=== PATIENT | female | born 1955 | race Caucasian/White ===

== ENCOUNTER 2020-06-14 06:26 | Outpatient (REF) | payer MEDICARE, SELFPAY ==
[2020-06-14 07:18] LABS: MANUAL DIFF FLAG NO
[2020-06-14 07:22] LABS: Basophils Percent Auto 0.4 % (0-2); Eosinophils Absolute Auto 0.1 X10*3/uL (0.0-0.4); Eosinophils Percent Auto 1.9 % (0-4); Hematocrit 41.8 % (37-47); Hemoglobin 13.8 g/dl (12.0-16.0); Imm Gran Abs Auto 0.02 X10*3/uL (0.00-0.03); Imm Gran Pct Auto 0.4 % (0.0-0.4); Lymphocytes Absolute Auto 1.2 X10*3/uL (1.2-4.9); Lymphocytes Percent Auto 26.6 % (20-40); Mean Corpuscular Hemoglobin 31.1 pg (27.0-33.0); Mean Corpuscular Volume 94.1 fL (80-98); Mean Platelet Volume 10.1 fL (9.4-12.3); Monocytes Absolute Auto 0.4 X10*3/uL (0.1-1.2); Monocytes Percent Auto 8.8 % (2-11); Neutrophils Absolute Auto 2.9 X10*3/uL (2.0-8.3); Neutrophils Percent Auto 61.9 % (45-73); Platelet Count 190 X10*3/uL (160-400); Red Blood Count 4.44 X10*6/uL (4.20-5.50); Red Cell Distribution Width 11.9 % (11.0-16.0); White Blood Count 4.7 X10*3/uL (4.8-10.8)
[2020-06-14 07:31] LABS: Glucose Urine UA NEG (NEG); Leukocyte Esterase Urine 1+ (NEG); Nitrite Urine NEG (NEG); Urine Blood TRACE (NEG); Urine Ketones NEG (NEG); Urine Protein NEG (NEG-TRACE)
[2020-06-14 07:32] LABS: Appearance Urine CLEAR; Color Urine YELLOW
[2020-06-14 07:39] LABS: Alanine Aminotransferase 15 U/L (0-31); Albumin Level 4.2 g/dL (3.5-5.0); Alkaline Phosphatase 67 U/L (39-117); Anion Gap 14 (12-20); Aspartate Amino Transferase 18 U/L (5-31); Bilirubin Total 0.3 mg/dL (0.0-1.0); Blood Urea Nitrogen 10 mg/dL (9-16); Carbon Dioxide 25 mmol/L (22-29); Chloride 104 mmol/L (96-108); Cholesterol 203 mg/dL; Estimated Glomerular Filt Rate > 60; Glucose Fasting 94 mg/dL (60-99); HDL Cholesterol 63 mg/dL; LDL Cholesterol Calculated 110 mg/dl; Potassium 3.9 mmol/l (3.3-5.1); Sodium 139 mmol/L (135-145); Triglycerides 153 mg/dL
[2020-06-14 07:48] LABS: RBC Urine 0-2 /HPF (0); Squamous Epithelial Cell Urine TRACE /LPF
== END 2020-06-14 06:27 | disposition home or self-care (01) ==
LOC: HO.LAB 06:26
PROVIDERS: PCP Internal Medicine; Visit Provider Internal Medicine
DX: E03.9 Hypothyroidism, unspecified (principal); K21.9 Gastro-esophageal reflux disease without esophagitis; I10 Essential (primary) hypertension; E78.00 Pure hypercholesterolemia, unspecified
CPT/HCPCS: 36415; 80053; 80061; 81001; 84439; 84443; 85025

== ENCOUNTER 2020-11-06 09:54 | Outpatient (REF) | payer MEDICARE, SELFPAY ==
[2020-11-06 10:49] LABS: Anion Gap 12 (12-20); Blood Urea Nitrogen 11 mg/dL (9-16); Calcium 9.7 mg/dL (8.4-10.2); Carbon Dioxide 27 mmol/L (22-29); Chloride 105 mmol/L (96-108); Estimated Glomerular Filt Rate > 60; Glucose Random 97 mg/dL (60-115); Sodium 140 mmol/L (135-145)
[2020-11-06 11:13] LABS: Thyroid Stimulating Hormone 1.47 uIU/mL (0.32-4.0)
== END 2020-11-06 09:55 | disposition home or self-care (01) ==
LOC: HO.10HDL 09:54
PROVIDERS: Visit Provider Internal Medicine
DX: I10 Essential (primary) hypertension (principal); E03.9 Hypothyroidism, unspecified; K21.9 Gastro-esophageal reflux disease without esophagitis
CPT/HCPCS: 36415; 80048; 84439; 84443

== ENCOUNTER 2021-03-26 08:33 | Outpatient (REF) | payer MEDICARE, SELFPAY ==
--- NOTE | ~2021-03-26 | MM_ITS ---
EXAMINATION: MM SCREENING DIGITAL BREAST TOMOSYNTHESIS, BILATERAL CLINICAL INFORMATION: Screening. Asymptomatic. The lifetime risk of breast cancer based on the Tyrer-Cuzick Model is 8.9%. COMPARISON: Mammography: March 24, 2020 and studies dating back to September 26, 2013 TECHNIQUE: Digital breast tomosynthesis is performed in both the craniocaudal and mediolateral oblique views along with computer-aided detection (CAD). Synthesized 2D images are generated from the tomosynthesis. FINDINGS: There are scattered areas of fibroglandular density (ACR BI-RADS breast composition Category b). There are no significant masses, abnormal calcifications, or other abnormalities. MM/MM tomosynthesis screening BI IMPRESSION: There are no significant changes from prior study. ASSESSMENT: BI-RADS 1: Negative RECOMMENDATION: Routine annual mammography screening. This patient's information was entered into a reminder system with a target due date for their next mammogram.
== END 2021-03-26 08:34 | disposition home or self-care (01) ==
LOC: HO.MAMMO 08:33
PROVIDERS: PCP Internal Medicine; Visit Provider Internal Medicine
DX: Z12.31 Encounter for screening mammogram for malignant neoplasm of breast (principal)
CPT/HCPCS: 77063; 77067

== ENCOUNTER 2021-05-06 06:43 | Outpatient (REF) | payer MEDICARE, SELFPAY ==
[2021-05-06 07:07] LABS: MANUAL DIFF FLAG NO
[2021-05-06 07:27] LABS: Basophils Percent Auto 0.7 % (0-2); Eosinophils Absolute Auto 0.1 X10*3/uL (0.0-0.4); Hematocrit 41.8 % (37.0-47.0); Hemoglobin 14.1 g/dl (12.0-16.0); Imm Gran Abs Auto 0.01 X10*3/uL (0.00-0.03); Imm Gran Pct Auto 0.2 % (0.0-0.4); Lymphocytes Absolute Auto 1.6 X10*3/uL (1.2-4.9); Mean Corpuscular HGB Conc 33.7 g/dl (31.0-35.0); Mean Corpuscular Hemoglobin 31.8 pg (27.0-33.0); Mean Corpuscular Volume 94.1 fL (80.0-98.0); Mean Platelet Volume 9.9 fL (9.4-12.3); Monocytes Absolute Auto 0.4 X10*3/uL (0.1-1.2); Monocytes Percent Auto 8.4 % (2-11); Neutrophils Absolute Auto 2.27 x10*3/uL (2.0-8.3); Neutrophils Percent Auto 51.7 % (45-73); Platelet Count 183 X10*3/uL (160-400); Red Blood Count 4.44 X10*6/uL (4.20-5.50); Red Cell Distribution Width 11.9 % (11.0-16.0); White Blood Count 4.4 X10*3/uL (4.8-10.8)
[2021-05-06 07:58] LABS: Alanine Aminotransferase 18 U/L (0-31); Albumin Level 4.4 g/dL (3.5-5.0); Alkaline Phosphatase 60 U/L (39-117); Anion Gap 11 (12-20); Aspartate Amino Transferase 20 U/L (5-31); Bilirubin Total 0.6 mg/dL (0.0-1.0); Blood Urea Nitrogen 10 mg/dL (9-16); Calcium 9.4 mg/dL (8.4-10.2); Carbon Dioxide 28 mmol/L (22-29); Chloride 107 mmol/L (96-108); Cholesterol 210 mg/dL; Estimated Glomerular Filt Rate > 60; Glucose Fasting 100 mg/dL (60-99); HDL Cholesterol 61 mg/dL; LDL Cholesterol Calculated 121 mg/dl; Potassium 4.5 mmol/L (3.3-5.1); Sodium 141 mmol/L (135-145); Triglycerides 142 mg/dL
[2021-05-06 08:22] LABS: Free T4 (Free Thyroxine) 0.92 ng/dL (0.71-1.85); Thyroid Stimulating Hormone 3.27 uIU/mL (0.32-4.0)
== END 2021-05-06 06:44 | disposition home or self-care (01) ==
LOC: HO.LAB 06:43
PROVIDERS: PCP Internal Medicine; Visit Provider Internal Medicine
DX: I10 Essential (primary) hypertension (principal); E03.9 Hypothyroidism, unspecified; K21.9 Gastro-esophageal reflux disease without esophagitis
CPT/HCPCS: 36415; 80053; 80061; 84439; 84443; 85025

== ENCOUNTER 2021-09-18 07:03 | Outpatient (REF) | payer MEDICARE, SELFPAY ==
[2021-09-18 08:18] LABS: Anion Gap 14 (12-20); Blood Urea Nitrogen 11 mg/dL (9-16); Calcium 10.4 mg/dL (8.4-10.2); Carbon Dioxide 27 mmol/L (22-29); Chloride 105 mmol/L (96-108); Estimated Glomerular Filt Rate > 60; Glucose Random 98 mg/dL (60-115); Potassium 4.4 mmol/L (3.3-5.1); Sodium 142 mmol/L (135-145)
[2021-09-18 08:44] LABS: Thyroid Stimulating Hormone 3.24 uIU/mL (0.32-4.0)
== END 2021-09-18 07:04 | disposition home or self-care (01) ==
LOC: HO.LAB 07:03
PROVIDERS: PCP Internal Medicine; Visit Provider Internal Medicine
DX: I10 Essential (primary) hypertension (principal); E03.9 Hypothyroidism, unspecified
CPT/HCPCS: 36415; 80048; 84439; 84443

== ENCOUNTER 2022-03-28 08:31 | Outpatient (REF) | payer MEDICARE, SELFPAY ==
--- NOTE | ~2022-03-28 | MM_ITS ---
EXAMINATION: MM SCREENING DIGITAL BREAST TOMOSYNTHESIS, BILATERAL CLINICAL INFORMATION: Screening. Asymptomatic. The lifetime risk of breast cancer based on the Tyrer-Cuzick Model is 8%. COMPARISON: Mammography: 03/26/2021, 03/24/2020, 12/06/2018, 11/27/2017 TECHNIQUE: Digital breast tomosynthesis is performed in both the craniocaudal and mediolateral oblique views along with computer-aided detection (CAD). Synthesized 2D images are generated from the tomosynthesis. FINDINGS: There are scattered areas of fibroglandular density (ACR BI-RADS breast composition Category b). There are no significant masses, abnormal calcifications, or other abnormalities. Parenchymal pattern is similar to prior studies. There is no developing density or architectural abnormality. The axilla and skin contours are unremarkable. No significant changes. MM/MM tomosynthesis screening BI IMPRESSION: No mammographic evidence of malignancy. ASSESSMENT: BI-RADS 1: Negative RECOMMENDATION: Routine annual mammography screening. This patient's information was entered into a reminder system with a target due date for their next mammogram.
== END 2022-03-28 08:32 | disposition home or self-care (01) ==
LOC: HO.MAMMO 08:31
PROVIDERS: PCP Internal Medicine; Visit Provider Internal Medicine
DX: Z12.31 Encounter for screening mammogram for malignant neoplasm of breast (principal)
CPT/HCPCS: 77063; 77067

== ENCOUNTER 2022-05-27 06:27 | Outpatient (REF) | payer MEDICARE, SELFPAY ==
[2022-05-27 11:45] LABS: MANUAL DIFF FLAG NO
[2022-05-27 11:47] LABS: Eosinophils Absolute Auto 0.1 X10*3/uL (0.0-0.4); Hematocrit 42.3 % (37.0-47.0); Hemoglobin 14.1 g/dl (12.0-16.0); Imm Gran Abs Auto 0.01 X10*3/uL (0.00-0.03); Imm Gran Pct Auto 0.2 % (0.0-0.4); Lymphocytes Absolute Auto 1.6 X10*3/uL (1.2-4.9); Lymphocytes Percent Auto 39.3 % (20-40); Mean Corpuscular HGB Conc 33.3 g/dl (31.0-35.0); Mean Platelet Volume 10.5 fL (9.4-12.3); Monocytes Absolute Auto 0.3 X10*3/uL (0.1-1.2); Monocytes Percent Auto 7.9 % (2-11); Neutrophils Percent Auto 49.6 % (45-73); Platelet Count 184 X10*3/uL (160-400); Red Blood Count 4.55 X10*6/uL (4.20-5.50); Red Cell Distribution Width 12.1 % (11.0-16.0); White Blood Count 4.1 X10*3/uL (4.8-10.8)
[2022-05-27 13:05] LABS: Alanine Aminotransferase 18 U/L (0-31); Albumin Level 4.2 g/dL (3.5-5.0); Alkaline Phosphatase 56 U/L (39-117); Anion Gap 14 (12-20); Aspartate Amino Transferase 19 U/L (5-31); Bilirubin Total 0.7 mg/dL (0.0-1.0); Blood Urea Nitrogen 14 mg/dL (9-16); Calcium 9.3 mg/dL (8.4-10.2); Carbon Dioxide 24 mmol/L (22-29); Chloride 106 mmol/L (96-108); Cholesterol 200 mg/dL; Estimated Glomerular Filt Rate > 60; Free T4 (Free Thyroxine) 0.97 ng/dL (0.71-1.85); Glucose Fasting 99 mg/dL (60-99); HDL Cholesterol 61 mg/dL; LDL Cholesterol Calculated 112 mg/dl; Potassium 3.9 mmol/L (3.3-5.1); Sodium 140 mmol/L (135-145); Thyroid Stimulating Hormone 3.68 uIU/mL (0.32-4.0); Total Protein 6.7 g/dL (6.5-8.0); Triglycerides 139 mg/dL
== END 2022-05-27 06:28 | disposition home or self-care (01) ==
LOC: HO.HMGCLDS 06:27
PROVIDERS: PCP Internal Medicine; Visit Provider Internal Medicine
DX: E03.9 Hypothyroidism, unspecified (principal); E78.00 Pure hypercholesterolemia, unspecified; I10 Essential (primary) hypertension
CPT/HCPCS: 36415; 80053; 80061; 84439; 84443; 85025

== ENCOUNTER 2022-08-20 08:55 | Day surgery (SDC) | payer MEDICARE, SELFPAY ==
[2022-08-20 08:48] VITALS: BMI 25.9
[2022-08-20 08:59] VITALS: BP 141/84; PULSE 75; RESP 16; TEMP 36.8; O2SAT 98
[2022-08-20] MEDS: Lactated Ringers 1,000 ML 50 ML IVCONT (09:28)
--- NOTE | 2022-08-20 10:35 | HO.ANESPROP2 ---
HPI - Anesthesia Eval Consult details Narrative: 67 yo female patient for Colonoscopy PMF Active Problems Active Problems: GERD Past Medical History Medical History HTN (hypertension) Hypothyroid Family History Family history of problems with anesthesia: No Surgical History Surgical History Hx of esophagogastroduodenoscopy History of Problems with Anesthesia: No Social History Social History Patient Tobacco Use Status: Former Tobacco user Are you DNR?: No Advance Directives: No Advance Directives Information Provided: Yes Recently lost weight without trying: No Nutrition Risks: No Nutritional Risk Meds Allergies Allergy/AdvReac Type Severity Reaction Status Date / Time No Known Allergies Allergy Unverified 08/17/22 13:37 Active Medications: Current Medications Lactated Ringer's (Lr) 1,000 mls @ 50 mls/hr IVCONT .Q20H JOSE Last Admin: 08/20/22 09:28 Dose: 50 mls/hr Sodium Biphosphate/Sodium Phosphate (Sodium Phosphate,Emmons-Dibasic 133 Ml Enema) 133 ml SD ONCE PRN PRN Reason: Poor Colonoscopy Prep Results Home Medications Medication Instructions Recorded Confirmed Last Taken Type levothyroxine 25 mcg tablet 1 tab PO DAILY 08/19/22 08/19/22 08/19/22 History lisinopril 5 mg tablet 1 tab PO DAILY 08/19/22 08/19/22 08/20/22 History omeprazole 20 mg capsule,delayed 1 cap PO DAILY 08/19/22 08/19/22 08/19/22 History release Exam Exam Date and Time: August 20, 2022 1035 Height,Weight and Vital Signs: Height 5 ft 2 in Weight 64.41 kg Last Vital Signs Temp 98.2 F 08/20/22 08:59 Pulse 75 08/20/22 08:59 Resp 16 08/20/22 08:59 BP 141/84 H 08/20/22 08:59 Pulse Ox 98 08/20/22 08:59 O2 Del Method 08/20/22 08:59 Airway Mallampati Class: II TM Dist: >3cm Neck ROM: Full Loose/Missing/Broken Teeth: No (Denies broken,loose,missing teeth) Heart: RRR Lungs: CTAB Assessment and Plan Assessment Anesthesia Assessment: Anesthesia Plan Discussed and Chart Reviewed Final Anesthetic Review Family History of Problems with Anesthesia: No History of Problems with Anesthesia: No NPO: Yes ASA Class: II Final Preanesthetic Review: No Changes in Pt Med Stat, Meds/Allgs Chart Reviewed, Consent Obtained/Reviewed and Anes Risks/Benef Reviewed Patient Risk: Low Procedure Risk: Low Assessment/Block/Sedation in SS: Assess/Block/Sedation-SS Anesthetic Plan Anesthetic Plan: MAC: Disposition: Standard PACU
--- NOTE | 2022-08-20 12:06 | P.BOP_ITS ---
Brief Operative Note Date of Service: 08/20/22 Pre-op diagnosis: Screening Post-op diagnosis: other (Rectal polyp) Procedure: Colonoscopy to the cecum with hot snare polypectomy of rectal polyp with clipping x 2 and marking with submucosal ink Surgeon: Cody Tran Anesthesia: MAC Was an Manager Of Product used for this Procedure?: No Estimated blood loss (mL): 0 Pathology: other (A. Rectal polyp) Condition: stable Disposition: PACU
[2022-08-20 12:11] VITALS: BP 111/77; PULSE 79; RESP 12; TEMP 36.3; O2SAT 100
[2022-08-20 12:26] VITALS: BP 113/74; PULSE 72; RESP 16; TEMP 36.3; O2SAT 96
--- NOTE | 2022-08-21 08:59 | OP_ITS ---
SURGEON: Cody Tran MD INDICATIONS: The patient presents for evaluation of colorectal cancer screening in regard to her family history of colon cancer in her brother. Full consent has been obtained from her for this, including risks of bleeding and perforation. PREOPERATIVE DIAGNOSIS: POSTOPERATIVE DIAGNOSIS: Colorectal cancer screening and family history of colon cancer, rectal polyp, diverticulosis, and internal hemorrhoids. PROCEDURE PERFORMED: Colonoscopy to the cecum with hot snare polypectomy, placement of 2 Resolution clips, and marking with submucosal ink. ESTIMATED BLOOD LOSS: COMPLICATIONS: ANESTHESIA: Monitored anesthesia care. ASSISTANTS: SPECIMENS: PREOPERATIVE DIAGNOSES: Colorectal cancer screening and family history of colon cancer. DESCRIPTION OF PROCEDURE: The patient was placed in the left lateral decubitus position. The digital rectal exam revealed no abnormalities. The Olympus video pediatric colonoscope was then entered into the rectum and advanced to the cecum. Advancement to the cecum was difficult and required abdominal wall pressure. Once in the cecum, I did identify normal-appearing cecal pouch with appendiceal orifice and normal-appearing ileocecal valve. The entire cecum and ileocecal valve appeared normal. The scope was then slowly withdrawn assessing all mucosal surfaces carefully. Preparation was excellent. There was a mild to moderate amount of sigmoid diverticulosis. There was no other sign of colitis or angiodysplasias. In the rectum, seen in the forward-viewing position, was a sessile and lobulated polypoid lesion measuring approximately 2 x 3 cm. There was no associated ulceration. I suspect this represented at least a tubular adenoma, serrated polyp, or a villous adenoma. The remainder of the rectum, both in the forward viewing and retroflexed positions, were normal other than some internal hemorrhoids. The lesion itself appeared to be on the posterior wall and in the mid-rectum. This was removed in piecemeal fashion by hot snare polypectomy with all pieces recovered by suction. Post polypectomy, there did not appear to be any definitive residual polyp tissue, nor any bleeding. I did use 2 Resolution clips to close the polypectomy defect with good deployment and good hemostasis. I then placed a submucosal ink gisela on each side of the polypectomy site. The scope was then withdrawn from the patient. She tolerated the procedure well and was returned to recovery area in stable condition. IMPRESSION: 1. Rectal polyp. 2. Diverticulosis. 3. Internal hemorrhoids. PLAN: The results of pathology will be checked. If the lesion happens to only be hyperplastic, I will then recommend a colonoscopy in 5 years. However, if the lesion is a tubular adenoma, villous adenoma, or serrated polyp, I will then recommend a repeat colonoscopy in 1 year for further followup. She was advised to not to use any aspirin or NSAIDs for 2 weeks. She will see me sooner on a p.r.n. basis. This has all been discussed with her . MD BRIGIDO Dietrich/SOLANGE / [id number] MTDD
== END 2022-08-20 13:07 | disposition home or self-care (01) ==
PROVIDERS: PCP Internal Medicine; Visit Provider Internal Medicine
PROC: 0DJD8ZZ Inspection of Lower Intestinal Tract, Via Natural or Artificial Opening Endoscopic (ICD-10-PCS; CPT 45378; principal; 2022-08-20 10:50)
DX: Z12.11 Encounter for screening for malignant neoplasm of colon (principal); Z80.0 Family history of malignant neoplasm of digestive organs; D12.8 Benign neoplasm of rectum; K57.30 Diverticulosis of large intestine without perforation or abscess without bleeding; K64.8 Other hemorrhoids; K21.9 Gastro-esophageal reflux disease without esophagitis; I10 Essential (primary) hypertension; E03.9 Hypothyroidism, unspecified; Z79.899 Other long term (current) drug therapy
CPT/HCPCS: 45385; 45381; 88305

== ENCOUNTER 2023-03-31 07:52 | Outpatient (REF) | payer MEDICARE, SELFPAY ==
--- NOTE | ~2023-03-31 | MM_ITS ---
EXAMINATION: BONE DENSITOMETRY CLINICAL INDICATION: Postmenopausal. COMPARISON: Previous BD dated 11/25/2016 and baseline BD dated 12/07/2006. TECHNIQUE: Using a [employer] DXA System (software version: 13.1) manufactured by [employer], dual-energy x-ray absorptiometry was performed of the lumbar spine and left hip. The images are of good technical quality. Summary results are attached. FINDINGS: LEFT FEMUR, NECK: Current: BMD 0.682 g/cm2, Z-score -0.9, T-score -2.6, osteoporosis. Prior: BMD 0.684 g/cm2. Baseline: BMD 0.652 g/cm2. LEFT FEMUR, TOTAL: Current: BMD 0.758 g/cm2, Z-score -0.6, T-score -2.0, osteopenia, 3.6% increase from previous, 2.0% increase from baseline (<5% change is not significant). Prior: BMD 0.732 g/cm2. Baseline: BMD 0.743 g/cm2. AP SPINE L1-L4: Current: BMD 1.024 g/cm2, Z-score 0.4, T-score -1.3, osteopenia, 0.7% increase from previous, 2.4% decrease from baseline (<5% change is not significant). Prior: BMD 1.017 g/cm2. Baseline: BMD 1.049 g/cm2. IDENTIFIED RISK FACTORS: Family history (parent hip fracture), menopause. HISTORY OF FRACTURE: None listed. MEDICATIONS: Calcium, vitamin D. MM/XR DEXA axial skeleton IMPRESSION: 1. DIAGNOSIS: Osteoporosis based on the lowest T-score value of -2.6 in the femoral neck applying World Health Organization criteria. 2. 10-YEAR FRACTURE RISK PREDICTION, FRAX: According to the guidelines, FRAX calculation should only be performed on patients in the osteopenia bone density category. Therefore, FRAX was not performed on this patient. 3. Treatment Recommendations: NOF guidelines recommend consideration for treatment in postmenopausal women and men age 50 and older presenting with the following: -A hip or vertebral (clinical or morphometric) fracture. -T-score less than or equal to -2.5 at the femoral neck or spine after appropriate evaluation to exclude secondary causes. -Low bone mass at the hip or spine and a 10-year fracture probability by FRAX of greater than or equal to 3% for hip fracture or greater than or equal to 20% for major osteoporotic fracture based on the [place] adapted WHO algorithm. 4. Other Recommendations: All treatment decisions require clinical judgment and consideration of individual patient factors, including patient preferences, comorbidities, previous drug use, risk factors not captured in the FRAX model (e.g. frailty, falls, vitamin D deficiency, increased bone turnover, interval significant decline in bone density) and possible under or overestimation of fracture risk by FRAX. Additional medical evaluation for secondary cause of low bone mineral density may be appropriate. FUTURE SCAN RECOMMENDATION: People with diagnosed cases of osteoporosis or at high risk for fracture should have regular bone mineral density tests. For patients eligible for Medicare, routine testing is allowed once every 2 years. The testing frequency can be increased to one year for patients who have rapidly progressing disease, those who are receiving or discontinuing medical therapy to restore bone mass, or have additional risk factors.
== END 2023-03-31 07:53 | disposition home or self-care (01) ==
LOC: HO.MAMMO 07:52
PROVIDERS: PCP Internal Medicine; Visit Provider Internal Medicine
DX: Z12.31 Encounter for screening mammogram for malignant neoplasm of breast (principal); Z13.820 Encounter for screening for osteoporosis; Z78.0 Asymptomatic menopausal state
CPT/HCPCS: 77063; 77067; 77080

== ENCOUNTER → 2023-03-31 08:45 | Outpatient (BNV) | payer MEDICARE, SELFPAY | PROVIDERS: PCP Internal Medicine; Visit Provider Radiology Diagnostic Radiology | DX: Z12.31 Encounter for screening mammogram for malignant neoplasm of breast (principal) | CPT/HCPCS: 77063; 77067 ==

== ENCOUNTER 2023-04-21 06:33 | Outpatient (REF) | payer MEDICARE, SELFPAY ==
[2023-04-21 06:42] LABS: MANUAL DIFF FLAG NO
[2023-04-21 07:46] LABS: Basophils Percent Auto 0.7 % (0-2); Eosinophils Absolute Auto 0.1 X10*3/uL (0.0-0.4); Hematocrit 42.6 % (37.0-47.0); Hemoglobin 14.6 g/dl (12.0-16.0); Imm Gran Abs Auto 0.01 X10*3/uL (0.00-0.03); Imm Gran Pct Auto 0.2 % (0.0-0.4); Lymphocytes Absolute Auto 1.7 X10*3/uL (1.2-4.9); Lymphocytes Percent Auto 43.2 % (20-40); Mean Corpuscular HGB Conc 34.3 g/dl (31.0-35.0); Mean Corpuscular Volume 93.4 fL (80.0-98.0); Mean Platelet Volume 10.3 fL (9.4-12.3); Monocytes Absolute Auto 0.4 X10*3/uL (0.1-1.2); Monocytes Percent Auto 8.7 % (2-11); Neutrophils Absolute Auto 1.8 x10*3/uL (2.0-8.3); Neutrophils Percent Auto 45.2 % (45-73); Platelet Count 185 X10*3/uL (160-400); Red Blood Count 4.56 X10*6/uL (4.20-5.50); Red Cell Distribution Width 11.9 % (11.0-16.0)
[2023-04-21 08:20] LABS: Alanine Aminotransferase 18 U/L (0-31); Albumin Level 4.4 g/dL (3.5-5.0); Alkaline Phosphatase 57 U/L (39-117); Anion Gap 15 (12-20); Aspartate Amino Transferase 21 U/L (5-31); Bilirubin Total 0.6 mg/dL (0.0-1.0); Blood Urea Nitrogen 12 mg/dL (9-16); Calcium 10.1 mg/dL (8.4-10.2); Carbon Dioxide 24 mmol/L (22-29); Chloride 106 mmol/L (96-108); Cholesterol 206 mg/dL (<200); Estimated Glomerular Filt Rate > 60; Glucose Fasting 99 mg/dL (60-99); HDL Cholesterol 66 mg/dL (>40); LDL Cholesterol Calculated 117 mg/dL (<100); Sodium 141 mmol/L (135-145); Total Protein 7.4 g/dL (6.5-8.0); Triglycerides 116 mg/dL (<150)
[2023-04-21 08:47] LABS: Free T4 (Free Thyroxine) 0.89 ng/dL (0.71-1.85); Thyroid Stimulating Hormone 3.21 uIU/mL (0.32-4.0); Vitamin D 25-OH Total 65.1 ng/mL (>30)
== END 2023-04-21 06:34 | disposition home or self-care (01) ==
LOC: HO.LAB 06:33
PROVIDERS: PCP Internal Medicine; Visit Provider Internal Medicine
DX: I10 Essential (primary) hypertension (principal); E03.9 Hypothyroidism, unspecified; E78.00 Pure hypercholesterolemia, unspecified; M85.80 Other specified disorders of bone density and structure, unspecified site
CPT/HCPCS: 36415; 80053; 80061; 82306; 84439; 84443; 85025

== ENCOUNTER 2023-05-26 06:29 | Outpatient (REF) | payer MEDICARE, SELFPAY ==
[2023-05-26 06:37] LABS: MANUAL DIFF FLAG NO
[2023-05-26 07:04] LABS: Basophils Percent Auto 0.9 % (0-2); Eosinophils Absolute Auto 0.1 X10*3/uL (0.0-0.4); Eosinophils Percent Auto 2.5 % (0-4); Hematocrit 43.8 % (37.0-47.0); Hemoglobin 14.6 g/dl (12.0-16.0); Imm Gran Abs Auto 0.01 X10*3/uL (0.00-0.03); Imm Gran Pct Auto 0.2 % (0.0-0.4); Lymphocytes Absolute Auto 1.9 X10*3/uL (1.2-4.9); Lymphocytes Percent Auto 42.6 % (20-40); Mean Corpuscular HGB Conc 33.3 g/dl (31.0-35.0); Mean Corpuscular Hemoglobin 31.7 pg (27.0-33.0); Monocytes Absolute Auto 0.4 X10*3/uL (0.1-1.2); Monocytes Percent Auto 8.1 % (2-11); Neutrophils Percent Auto 45.7 % (45-73); Platelet Count 181 X10*3/uL (160-400); Red Blood Count 4.61 X10*6/uL (4.20-5.50); Red Cell Distribution Width 12.3 % (11.0-16.0); White Blood Count 4.3 X10*3/uL (4.8-10.8)
[2023-05-26 07:24] LABS: Alanine Aminotransferase 20 U/L (0-31); Albumin Level 4.4 g/dL (3.5-5.0); Alkaline Phosphatase 57 U/L (39-117); Anion Gap 11 (12-20); Aspartate Amino Transferase 20 U/L (5-31); Bilirubin Total 0.6 mg/dL (0.0-1.0); Blood Urea Nitrogen 11 mg/dL (9-16); Calcium 9.7 mg/dL (8.4-10.2); Carbon Dioxide 28 mmol/L (22-29); Chloride 107 mmol/L (96-108); Cholesterol 197 mg/dL (<200); Estimated Glomerular Filt Rate > 60; Glucose Fasting 101 mg/dL (60-99); HDL Cholesterol 63 mg/dL (>40); LDL Cholesterol Calculated 102 mg/dL (<100); Potassium 3.8 mmol/L (3.3-5.1); Sodium 142 mmol/L (135-145); Total Protein 7.3 g/dL (6.5-8.0); Triglycerides 162 mg/dL (<150)
[2023-05-26 07:39] LABS: Free T4 (Free Thyroxine) 1.02 ng/dL (0.71-1.85); Thyroid Stimulating Hormone 3.58 uIU/mL (0.32-4.0); Vitamin D 25-OH Total 64.1 ng/mL (>30)
== END 2023-05-26 06:30 | disposition home or self-care (01) ==
LOC: HO.LAB 06:29
PROVIDERS: PCP Internal Medicine; Visit Provider Internal Medicine
DX: I10 Essential (primary) hypertension (principal); E78.00 Pure hypercholesterolemia, unspecified; E03.9 Hypothyroidism, unspecified; M85.80 Other specified disorders of bone density and structure, unspecified site
CPT/HCPCS: 36415; 80053; 80061; 82306; 84439; 84443; 85025

== ENCOUNTER 2023-06-05 08:31 | Outpatient (REF) | payer MEDICARE, SELFPAY ==
--- NOTE | 2023-06-05 09:43 | PFT_ITS ---
Indication: Dyspnea Spirometry [FEV1 to FVC 74% predicted; FEV1 2.36 L which is 100% predicted; FVC 3.2 L which is 104%. No significant response to bronchodilators noted; maximum voluntary ventilation 115% predicted] Lung Volumes [Total lung capacity 93% predicted Diffusion Capacity [DLCO 89% predicted] Comparisons [None] Interpretation [No obstructive nor restrictive ventilatory defects identified. No significant response to bronchodilators noted. No maximum voluntary ventilation. Lung volumes and diffusing capacity also within normal limits. No clear explanation for the patient's symptoms based on the PFT. If asthma is in the differential, a methacholine challenge would be helpful in assessing for hyperactive airways. Clinical correlation warranted.] MTDD
== END 2023-06-05 08:32 | disposition home or self-care (01) ==
LOC: HO.RESP 08:31
PROVIDERS: PCP Internal Medicine; Visit Provider Internal Medicine
DX: R06.09 Other forms of dyspnea (principal); Z77.22 Contact with and (suspected) exposure to environmental tobacco smoke (acute) (chronic)
CPT/HCPCS: 94010; 94727; 94729

== ENCOUNTER 2024-01-04 10:09 | Day surgery (SDC) | payer MEDICARE, SELFPAY ==
--- NOTE | 2024-01-01 09:24 | HO.ANESPROP2 ---
Documented by User: Rachell Orlando NP 01/01/24 09:24 HPI - Anesthesia Eval Consult details Narrative: 68yo F for Colonoscopy [facility] Past Medical History Medical History HTN (hypertension) Hypothyroid Family History Family history of problems with anesthesia: No Surgical History Surgical History Hx of esophagogastroduodenoscopy History of Problems with Anesthesia: No Social History Social History Patient Tobacco Use Status: Former Tobacco user Use of substances other than those prescribed or required for medical reasons: No Are you DNR?: No Advance Directives: No Advance Directives Information Provided: Yes Meds Allergies Allergy/AdvReac Type Severity Reaction Status Date / Time No Known Allergies Allergy Unverified 08/17/22 13:37 Home Medications ?Medication ?Instructions ?Recorded ?Confirmed ?Last Taken ?Type levothyroxine 25 mcg tablet 1 tab PO DAILY 08/19/22 08/19/22 08/19/22 History lisinopril 5 mg tablet 1 tab PO DAILY 08/19/22 08/19/22 08/20/22 History omeprazole 20 mg capsule,delayed 1 cap PO DAILY 08/19/22 08/19/22 08/19/22 History release Assessment and Plan Assessment Anesthesia Assessment: Chart Reviewed Final Anesthetic Review Family History of Problems with Anesthesia: No History of Problems with Anesthesia: No Documented by User: Shira Pena MD 01/04/24 12:15 [facility] Active Problems Active Problems: HTN GERD Hypothyroidism Past Medical History Medical History HTN (hypertension) Hypothyroid Family History Family history of problems with anesthesia: No Surgical History Surgical History Hx of esophagogastroduodenoscopy History of Problems with Anesthesia: No Social History Social History Patient Tobacco Use Status: Former Tobacco user Use of substances other than those prescribed or required for medical reasons: No Are you DNR?: No Advance Directives: No Advance Directives Information Provided: Yes Meds Allergies Allergy/AdvReac Type Severity Reaction Status Date / Time No Known Allergies Allergy Unverified 08/17/22 13:37 Home Medications ?Medication ?Instructions ?Recorded ?Confirmed ?Last Taken ?Type levothyroxine 25 mcg tablet 1 tab PO DAILY 08/19/22 08/19/22 08/19/22 History lisinopril 5 mg tablet 1 tab PO DAILY 08/19/22 08/19/22 08/20/22 History omeprazole 20 mg capsule,delayed 1 cap PO DAILY 08/19/22 08/19/22 08/19/22 History release Exam Height,Weight and Vital Signs: Height 5 ft 2 in Weight 63.503 kg Vital Signs Temp Pulse Resp BP Pulse Ox O2 Del Method 01/04/24 10:50 97.2 F 71 16 155/74 H 94 Room Air Airway Mallampati Class: II TM Dist: >3cm Neck ROM: Full Loose/Missing/Broken Teeth: No (Caps intact. Denies broken, loose, missing teeth) Heart: RRR Lungs: CTAB Assessment and Plan Assessment Anesthesia Assessment: Anesthesia Plan Discussed and Chart Reviewed Final Anesthetic Review Family History of Problems with Anesthesia: No History of Problems with Anesthesia: No NPO: Yes ASA Class: II Final Preanesthetic Review: No Changes in Pt Med Stat, Meds/Allgs Chart Reviewed, Consent Obtained/Reviewed and Anes Risks/Benef Reviewed Patient Risk: Low Procedure Risk: Low Assessment/Block/Sedation in SS: Assess/Block/Sedation-SS Anesthetic Plan Anesthetic Plan: GA and TIVA Disposition: Standard PACU
[2024-01-04 10:20] VITALS: BMI 25.6
[2024-01-04 10:50] VITALS: BP 155/74; PULSE 71; RESP 16; TEMP 36.2; O2SAT 94
[2024-01-04] MEDS: Lactated Ringers 1,000 ML 100 ML IVCONT (10:51)
[2024-01-04 13:37] VITALS: BP 112/72; PULSE 65; RESP 14; TEMP 36.6; O2SAT 97
--- NOTE | 2024-01-04 13:37 | PM.OP ---
Brief Operative Note Date of Service: 01/04/24 Pre-op diagnosis: Screening Post-op diagnosis: other (Colon polyp) Procedure: Colonoscopy to the cecum with hot snare polypectomy with submucosal ink marking Surgeon: Cody Tran MD Anesthesia: MAC Was an Sales Engagement Manager used for this Procedure?: No Estimated blood loss (mL): 0 Pathology: other (A. Polyp at 35cm) Condition: stable Disposition: PACU
[2024-01-04 13:52] VITALS: BP 115/59; PULSE 60; RESP 16; TEMP 36.6; O2SAT 97
--- NOTE | 2024-01-05 00:15 | OP_ITS ---
DATE OF SERVICE: 01/04/2024 SURGEON: Cody Tran MD INDICATIONS: The patient presents for followup of colorectal cancer screening and personal history of tubular adenomas of the colon, as well as family history of colorectal cancer. Full consent was obtained from her for this, including risks of bleeding and perforation. PREOPERATIVE DIAGNOSIS: POSTOPERATIVE DIAGNOSIS: PROCEDURE PERFORMED: Colonoscopy to the cecum with hot snare polypectomy and placement of submucosal ink begum. ESTIMATED BLOOD LOSS: COMPLICATIONS: ANESTHESIA: Monitored anesthesia care. ASSISTANTS: SPECIMENS: PREOPERATIVE DIAGNOSES: Colorectal cancer screening, personal history of tubular adenomas of the colon, family history of colon cancer. POSTOPERATIVE DIAGNOSES: Colorectal cancer screening, personal history of tubular adenomas of the colon, family history of colon cancer, colon polyp, diverticulosis, and internal hemorrhoids. DESCRIPTION OF PROCEDURE: The patient was placed in left lateral decubitus position. The digital rectal exam revealed no abnormalities. The Olympus video pediatric colonoscope was entered into the rectum and advanced to the cecum. Advancement to the cecum was somewhat difficult. However, once in the cecum I did identify normal appearing cecal pouch in the appendiceal orifice, a normal appearing ileocecal valve. The entire cecum and ileocecal valve appeared normal. The scope was then slowly withdrawn assessing all mucosal surfaces carefully. Preparation was excellent. At 35 cm was a somewhat lobulated flat but raised polyp, which may have represented either a large hyperplastic polyp or serrated polyp measuring approximately 15 mm in diameter. It was a difficult location right at the turn of the sigmoid, but I was able to eventually obtain a good position at it and removed it with a hot snare polypectomy. The piece was then recovered by suction. The polypectomy site appeared clean, without any sign of residual polyp nor bleeding. I was able to place a submucosal ink gisela just proximal and immediately distal, and almost adjacent to it. I did not visualize any other polyps, colitis, nor angiodysplasia. There was a moderate amount of sigmoid diverticulosis. In the rectum, seen best in the forward viewing position was the previously placed submucosal ink begum. There was some scarring between the 2 of them consistent with the previous polypectomy from last year, but I did not visualize any residual polyp tissue. The remainder of the rectum appeared normal both in the forward viewing and retroflexed positions. Scope was withdrawn from the patient. She tolerated the procedure well, was returned to the recovery area in stable condition. IMPRESSION: 1. Colon polyp. 2. Diverticulosis. 3. Internal hemorrhoids. PLAN: The results of the pathology will be checked. If the polyp we removed today is only hyperplastic, I would then recommend a followup colonoscopy in 2 to 3 years. If the polyp we removed today is a serrated and/or adenomatous polyp, I would then recommend a repeat colonoscopy within 1 year. She was advised not to use any aspirin, NSAIDs for at least a week. This has been discussed with her . MD BRIGIDO Dietrich/SOLANGE / [phone]
== END 2024-01-04 14:39 | disposition home or self-care (01) ==
PROVIDERS: PCP Internal Medicine; Visit Provider Internal Medicine
PROC: 0DJD8ZZ Inspection of Lower Intestinal Tract, Via Natural or Artificial Opening Endoscopic (ICD-10-PCS; CPT 45378; principal; 2024-01-04 11:40)
DX: Z12.11 Encounter for screening for malignant neoplasm of colon (principal); D12.5 Benign neoplasm of sigmoid colon; K57.30 Diverticulosis of large intestine without perforation or abscess without bleeding; K64.8 Other hemorrhoids; Z86.010 Personal history of colon polyps; Z80.0 Family history of malignant neoplasm of digestive organs; I10 Essential (primary) hypertension; Z87.891 Personal history of nicotine dependence; Z79.899 Other long term (current) drug therapy
CPT/HCPCS: 45385; 45381; 88305; J1596; J2704

== ENCOUNTER 2024-04-01 08:24 | Outpatient (REF) | payer MEDICARE, SELFPAY ==
--- NOTE | ~2024-04-01 | MM_ITS ---
EXAMINATION: MM SCREENING DIGITAL BREAST TOMOSYNTHESIS, BILATERAL CLINICAL INFORMATION: Screening. Asymptomatic. COMPARISON: Mammography: Comparison is made with available priors TECHNIQUE: Digital breast mammography with tomosynthesis is performed in both the craniocaudal and mediolateral oblique views along with computer-aided detection (CAD). FINDINGS: There are scattered areas of fibroglandular density (ACR BI-RADS breast composition Category b). There are no significant masses, abnormal calcifications, or other abnormalities. MM/MM tomosynthesis screening BI IMPRESSION: No mammographic evidence of malignancy. ASSESSMENT: BI-RADS BI-RADS 1 - Negative RECOMMENDATION: Routine annual mammography screening. 1 year F/U This examination should not preclude the clinical evaluation of a suspicious palpable abnormality. This patient's information was entered into a reminder system with a target due date for their next mammogram. Electronically signed by: Kaylee Thomas DO 04/12/2024 06:15 PM EDT
== END 2024-04-01 08:25 | disposition home or self-care (01) ==
LOC: HO.MAMMO 08:24
PROVIDERS: PCP Internal Medicine; Visit Provider Internal Medicine
DX: Z12.31 Encounter for screening mammogram for malignant neoplasm of breast (principal)
CPT/HCPCS: 77063; 77067

== ENCOUNTER → 2024-04-01 08:45 | Outpatient (BNV) | payer MEDICARE, SELFPAY | PROVIDERS: PCP Internal Medicine; Visit Provider Internal Medicine | DX: Z12.31 Encounter for screening mammogram for malignant neoplasm of breast (principal) | CPT/HCPCS: 77063; 77067 ==

== ENCOUNTER 2024-05-02 06:06 | Outpatient (REF) | payer MEDICARE, SELFPAY ==
[2024-05-02 06:24] LABS: MANUAL DIFF FLAG NO
[2024-05-02 07:43] LABS: Eosinophils Absolute Auto 0.1 X10*3/uL (0.0-0.4); Eosinophils Percent Auto 2.5 % (0-4); Hematocrit 42.5 % (37.0-47.0); Hemoglobin 14.2 g/dl (12.0-16.0); Imm Gran Abs Auto 0.02 X10*3/uL (0.00-0.03); Imm Gran Pct Auto 0.5 % (0.0-0.4); Lymphocytes Absolute Auto 1.6 X10*3/uL (1.2-4.9); Lymphocytes Percent Auto 40.5 % (20-40); Mean Corpuscular HGB Conc 33.4 g/dl (31.0-35.0); Mean Corpuscular Hemoglobin 31.6 pg (27.0-33.0); Mean Corpuscular Volume 94.7 fL (80.0-98.0); Mean Platelet Volume 9.9 fL (9.4-12.3); Monocytes Absolute Auto 0.3 X10*3/uL (0.1-1.2); Monocytes Percent Auto 8.4 % (2-11); Neutrophils Absolute Auto 1.9 x10*3/uL (2.0-8.3); Neutrophils Percent Auto 47.1 % (45-73); Platelet Count 189 X10*3/uL (160-400); Red Blood Count 4.49 X10*6/uL (4.20-5.50); Red Cell Distribution Width 11.8 % (11.0-16.0); White Blood Count 4.1 X10*3/uL (4.8-10.8)
[2024-05-02 07:45] LABS: Appearance Urine Cloudy; Color Urine Yellow; Glucose Urine UA Negative (Negative); Leukocyte Esterase Urine Negative (Negative); Nitrite Urine Negative (Negative); PH 7.5 (5.0-9.0); Urine Blood Negative (Negative); Urine Ketones Negative (Negative); Urine Protein Trace mg/dL (Neg-Trace)
[2024-05-02 08:15] LABS: Alanine Aminotransferase 20 U/L (0-31); Albumin Level 4.2 g/dL (3.5-5.0); Alkaline Phosphatase 68 U/L (39-117); Anion Gap 12 (12-20); Aspartate Amino Transferase 23 U/L (5-31); Bilirubin Total 0.6 mg/dL (0.0-1.0); Blood Urea Nitrogen 14 mg/dL (9-16); Calcium 9.8 mg/dL (8.4-10.2); Carbon Dioxide 25 mmol/L (22-29); Chloride 106 mmol/L (96-108); Cholesterol 206 mg/dL (<200); Estimated Glomerular Filt Rate > 60; Glucose Fasting 97 mg/dL (60-99); HDL Cholesterol 62 mg/dL (>40); LDL Cholesterol Calculated 117 mg/dL (<100); Potassium 4.3 mmol/L (3.3-5.1); Sodium 139 mmol/L (135-145); Total Protein 6.9 g/dL (6.5-8.0); Triglycerides 138 mg/dL (<150)
[2024-05-02 08:29] LABS: Free T4 (Free Thyroxine) 0.94 ng/dL (0.71-1.85); Thyroid Stimulating Hormone 2.73 uIU/mL (0.32-4.0)
== END 2024-05-02 06:07 | disposition home or self-care (01) ==
LOC: HO.LAB 06:06
PROVIDERS: PCP Internal Medicine; Visit Provider Internal Medicine
DX: I10 Essential (primary) hypertension (principal); E78.00 Pure hypercholesterolemia, unspecified; E03.9 Hypothyroidism, unspecified
CPT/HCPCS: 36415; 80053; 80061; 81003; 84439; 84443; 85025

== ENCOUNTER 2024-09-15 14:09 | Outpatient (AMB) | payer MEDICARE, SELFPAY ==
[2024-09-15 14:15] VITALS: BP 124/70; PULSE 86; RESP 14; TEMP 36.5; O2SAT 99; BMI 26.2
--- NOTE | 2024-09-15 14:15 | MHC.PC.OV ---
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 Last seen May 2024. CV: On lisinopril 5mg daily. Denies chest pain, shortness of breath. 124/70. GERD: On omeprazole 20mg daily. Symptoms controlled Hypothyroid: on levothyroxine 25mcg daily. Mammo 03/2024 Dexa 03/2023 Colonoscopy 01/2024 due 01/2025 ROS CONSTITUTIONAL: Denies weight loss, fever and chills. HEENT: Denies changes in vision and hearing. RESPIRATORY: Denies SOB and cough. CV: Denies palpitations and CP GI: Denies abdominal pain, nausea, vomiting and diarrhea. : Denies dysuria and urinary frequency. MSK: Denies new myalgia and joint pain. SKIN: Denies rash and pruritus. NEUROLOGICAL: Denies headache PSYCHIATRIC: Denies recent changes in mood. PHYSICAL EXAM: GENERAL: Alert and oriented x 3. NAD EYES: EOMI. Anicteric. HENT: Moist mucous membranes. No scleral icterus. No cervical lymphadenopathy. LUNGS: Clear to auscultation bilaterally. CARDIOVASCULAR: Regular rate and rhythm. No murmur. No JVD. ABDOMEN: Soft, non-tender +bs EXTREMITIES: No edema. Non-tender. SKIN: No rashes or lesions. Warm. NEUROLOGIC: No focal neurological deficits. CN II-XII grossly intact PSYCHIATRIC: Cooperative. Appropriate mood and affect [facility] Medical History Hypothyroid HTN (hypertension) Surgical History Hx of esophagogastroduodenoscopy Family History Father Stroke Mother Osteoporosis Hypertension Social History Housing: House Alcohol intake: current Alcohol intake frequency: 0-2 drinks per day Patient Tobacco Use Status: Former Tobacco user service: No Current occupational status: retired Cognitive needs: No Hearing needs: No Vision needs: Yes (rx glasses/contact) Questionnaire PHQ-9 Over the last 2 weeks, how often have you been bothered by any of the following problems? 1. Little interest or pleasure in doing things: not at all 2. Feeling down, depressed, or hopeless: not at all 3. Trouble falling or staying asleep, or sleeping too much: not at all 4. Feeling tired or having little energy: not at all 5. Poor appetite or overeating: not at all 6. Feeling bad about yourself - or that you are a failure or have let yourself or your family down: not at all 7. Trouble concentrating on things, such as reading the newspaper or watching television: not at all 8. Moving or speaking so slowly that other people could have noticed. Or the opposite - being so fidgety or restless that you have been moving around a lot more than usual: not at all 9. Thoughts that you would be better off or of hurting yourself in some way: not at all Total score: 0 Depression Screening Interpretation: Negative Depression Screening Done: Yes 88015 - PHQ-9 Billing: Yes Source: Developed by Drs. Cody Kaufman, Elenita Lacey, Endy Bass and colleagues, with an educational radha from [employer]. Thrive Questionnaire Date Thrive assessed: 09/15/24 I am a: Patient What is your living situation today?: I have a steady place to live Within the past 12 months, did the food you bought not last and you didn't have the money to get more?: Never true Within the past 12 months, did you worry whether your food would run out before you got money to buy more?: Never true Do you have trouble paying for medicines?: No Do you have trouble getting transportation to medical appointments?: No Do you have trouble paying your heating and electricity bill?: No Do you have trouble taking care of your child, family member or friend?: No Do you have trouble with day-to-day activities such as bathing, preparing meals, shopping, managing finances, etc.?: No Are you currently unemployed and looking for a job?: No Are you interested in more education?: No THRIVE Score: 0 AUDIT C Alcohol Use Questionnaire (AUDIT-C) 1. How often do you have a drink containing alcohol?: 4 or more times a week 2. How many drinks containing alcohol do you have on a typical day when you are drinking?: 1 or 2 3. How often do you have six or more drinks on one occasion?: Never Total Score: 4 BETSY-7 AMB Questionnaire BETSY-7 Date BETSY - 7 assessed: 09/15/24 Feeling nervous, anxious, or on edge: 0 = Not at all Not being able to stop or control worryin = Not at all Worrying too much about different things: 0 = Not at all Trouble relaxin = Not at all Being so restless that it is hard to sit still: 0 = Not at all Becoming easily annoyed or irritable: 0 = Not at all Feeling afraid as if something awful might happen: 0 = Not at all Total BETSY-7 score (0-4 normal; 5-9 mild; 10-14 moderate; 15-21 severe): 0 Source: Developed by Drs. Cody Kaufman, Elenita Lacey, Endy Bass and colleagues, with an educational radha from [employer]. Physical exam (Primary Care) Vital Signs: Last Vital Signs Temp 97.7 F 09/15/24 14:15 Pulse 86 09/15/24 14:15 Resp 14 09/15/24 14:15 BP 124/70 09/15/24 14:15 Pulse Ox 99 09/15/24 14:15 Oxygen Delivery Method Room Air 09/15/24 14:15 BMI result Body Mass Index 26.2 Tobacco/Smoking Status: Tobacco use Status Tobacco use date assessed 09/15/24 09/15/24 14:25 Patient Tobacco Use Status Former Tobacco user 09/15/24 14:25 PHQ-9: PHQ-9 Score PHQ-9: Total score 0 09/15/24 14:25 Depression Screening Interpretation: Negative Thrive Assessment: Date of Thrive Assessment Date Thrive assessed 09/15/24 09/15/24 14:25 Coding Level of Care Code Est Pt Level 4 (38400) Diagnoses Primary hypertension I10 Hypertension type: primary hypertension Hypothyroidism, unspecified type E03.9 Hypothyroidism type: unspecified Osteopenia, unspecified location M85.80 Osteopenia location: unspecified Additional Codes PHQ-9 - 16831 - PHQ-9 Billing: Yes ([id number]) Assessment & Plan Assessment & Plan (1) HTN (hypertension): Code(s): I10 - Essential (primary) hypertension Category: Medical Qualifiers: Hypertension type: primary hypertension Qualified Code(s): I10 - Essential (primary) hypertension Plan: Well controlled on current medication Low salt diet. Continue current medications (2) Hypothyroid: Code(s): E03.9 - Hypothyroidism, unspecified Category: Medical Qualifiers: Hypothyroidism type: unspecified Qualified Code(s): E03.9 - Hypothyroidism, unspecified Plan: Clinically and biochemicall euthyroid (3) Osteopenia: Code(s): M85.80 - Other specified disorders of bone density and structure, unspecified site Category: Medical Qualifiers: Osteopenia location: unspecified Qualified Code(s): M85.80 - Other specified disorders of bone density and structure, unspecified site Plan: DXA due sept, ordered. continue calcium vitamin D Orders: Orders Vitamin D 25-OH (D2 and D3) 6 Months E03.9 - Hypothyroidism, unspecified, I10 - Essential (primary) hypertension, M85.80 - Other specified disorders of bone density and structure, unspecified site, Z13.228 - Encounter for screening for other metabolic disorders MM screening mammo BI 6 Months Z12.31 - Encounter for screening mammogram for malignant neoplasm of breast XR DEXA axial skeleton 6 Months M85.80 - Other specified disorders of bone density and structure, unspecified site Complete Blood Count Auto Diff 6 Months E03.9 - Hypothyroidism, unspecified, I10 - Essential (primary) hypertension, M85.80 - Other specified disorders of bone density and structure, unspecified site, Z13.228 - Encounter for screening for other metabolic disorders Comprehensive Met. Panel 6 Months E03.9 - Hypothyroidism, unspecified, I10 - Essential (primary) hypertension, M85.80 - Other specified disorders of bone density and structure, unspecified site, Z13.228 - Encounter for screening for other metabolic disorders Lipid Panel 6 Months E03.9 - Hypothyroidism, unspecified, I10 - Essential (primary) hypertension, M85.80 - Other specified disorders of bone density and structure, unspecified site, Z13.228 - Encounter for screening for other metabolic disorders TSH reflex Free T4 6 Months E03.9 - Hypothyroidism, unspecified, I10 - Essential (primary) hypertension, M85.80 - Other specified disorders of bone density and structure, unspecified site, Z13.228 - Encounter for screening for other metabolic disorders
--- OUTSIDE RECORDS SUMMARY | 2024-09-15 17:58 | XMS_ITS | Encounter Summary ---
Author Organization [facility] Address [address] [place] [address] Care Team Providers Care Hot Box Checker Name Role Phone Storm Dubon MD Primary Care Provider [phone] Encounter Details Date Type Department Care Team (Latest Contact Info) Description 08/15/2024 7:44 AM EST - 08/15/2024 11:59 PM EST Hospital Encounter [facility] Ortho Xray [address] [place] [address] Pain Discharge Disposition: Home or Self Care Social History Tobacco Use Types Packs/Day Years Used Date Smoking Tobacco: Former Cigarettes Q uit: 05/08/1994 Smokeless Tobacco: Never Comments:Pt quit 30 yrs ago Alcohol Use Standard Drinks/Week Comments Yes 1 (1 standard drink = 0.6 oz pur e alcohol) Daily Interpersonal Safety Answer Date Record ed Physical Abuse 05/08/2024 Verbal Abuse 05/08/2024 Comments Unknown Sex and Gender Information Value Date Recorded Sex Assigned at Female 05/08/2024 10:40 PM EST Legal Sex Female 7:59 AM EST Gender Identity Female 05/08/2024 10:40 PM EST Sexual Orientation Straight 05/08/2024 10 :40 PM EST documented as of this encounter Functional Status * Are you deaf or do you have serious difficulty hearing? Answer Date of Assessment Author No 05/08/2024 5:08 PM Celia Paul RN * Are you blind or do you have serious difficulty seeing, even when wearing glasses? Answer Date of Assessment Author No 05/08/2024 5:08 PM Celia Paul RN * Do you have serious difficulty walking or climbing stairs? Answer Date of Assessment Author No 05/08/2024 5:08 PM Celia Paul RN * Do you have serious difficulty dressing or bathing? Answer Date of Assessment Author No 05/08/2024 5:08 PM Celia Paul RN * Because of a physical, mental, or emotional condition, do you have serious difficulty doing errandsalone such as visiting the doctor? Answer Date of Assessment Author No 05/08/2024 5:08 PM Celia Paul RN documented as of this encounter Mental Status * Because of a physical, mental, or emotional condition, do you have serious difficulty concentrating, remembering, or making decisions? (5 years old or older) Answer Entry Date Author No 05/08/2024 5:08 PM Celia Paul RN documented in this encounter Medications at Time of Discharge levothyroxine (SYNTHROID, LEVOTHROID) 25 mcg tablet Take by mouth 1 (one) time each day before breakfast. lisinopriL (PRINIVIL,ZESTRIL ) 10 mg tablet Take 1 tablet (10 mg total) by mouth 1 (one) time each day. omeprazole (PriLOSEC) [address] capsule Take 1 capsule (20 mg total) by mouth 1 (one) time each day. 02/17/2024 oxyCODONE (ROXICODONE) 5 mg immediate release tablet Take 1 tablet (5 mg total) by mouth every 6 (six) hours if needed for moderate pain (Breakthrough pain). Max Daily Amount: 20 mg 12 tablet 05/09/2024 documented as of this encounter Discharge Disposition Disposition Code Departure Means Destination Home or Self Care documented in this encounter Plan of Treatment Not on file documented as of this encounter Procedures Procedure Name Priority Date/Time Associated Diagnosis Comments XR WRIST 3+ VIEWS LEFT Routine 08/15/2024 8:28 AM EST Pain documented in this encounter Results * XR Wrist 3+ Views Left (08/15/2024 8:28 AM EST) Narrative RIS PACS/VR - 08/15/2024 8:28 AM EST This order has been auto-finalized and does not contain a result. us Jimmy Zhang MD IMG XR PROCEDURES Final Resul t RIS PACS/VR documented in this encounter Visit Diagnoses Diagnosis Pain Generalized pain documented in this encounter Care Teams Hot Box Checker Relationship Specialty Start Date End Date Storm Dubon MD [address] [place] PCP - General Internal Medicine 05/08/24 documented as of this encounter
--- OUTSIDE RECORDS SUMMARY | 2024-09-15 17:58 | XMS_ITS | Clinical Summary ---
Author Organization [facility] Address [address] [place] [address] Phone Care Team Providers Care Drywall Stripper Helper Name Role Phone Storm Dubon MD Primary Care Provider [phone] Allergies No known active allergies Medications lisinopriL (PRINIVIL,ZESTR IL) 10 mg tablet Take 1 tablet (10 mg total) by mouth 1 (one) time each day. Active levothyroxine (SYNTHROID, LEVOTHROID) 25 mcg tablet Take by mouth 1 (one) time each day before breakfast. Active omeprazole (PriLOSEC) [address] capsule Take 1 capsule (20 mg total) by mouth 1 (one) time each day. 02/17/2024 Active oxyCODONE (ROXICODONE) 5 mg immediate release tablet Take 1 tablet (5 mg total) by mouth every 6 (six) hours if needed for moderate pain (Breakthrough pain). Max Daily Amount: 20 mg 12 tablet 05/09/2024 Active Active Problems Problem Noted Date Diagnosed Date Closed Colles' fracture of left radius with rout ine healing 05/09/2024 Radius fracture 05/08/2024 HTN (hypertension) 05/08/2024 Hypothyroid 05/08/2024 Encounters Date Type Department Care Team Description 08/15/2024 7:44 AM EST - 08/15/2024 11:59 PM EST Hospital Encounter [facility] [address] [place] [address] Pain Discharge Disposition: Home or Self Care 07/04/2024 7:44 AM EST - 07/04/2024 11:59 PM EST Hospital Encounter [facility] [address] [place] [address] Pain Discharge Disposition: Home or Self Care from Last 3 Months Medical History Medical History Date Comments Hypertension Hypothyroidism GERD (gastroesophageal reflux disease) Family History Medical History Relation Name Comments Dementia Brother Dementia Father Prostate cancer Father Osteoporosis Mother Relation Name Status Comments Brother Lewy body demen tia Father Lewy body demen tiaProstate cancer Mother Osteoporosis Social History Tobacco Use Types Packs/Day Years Used Date Smoking Tobacco: Former Cigarettes Q uit: 05/08/1994 Smokeless Tobacco: Never Tobacco Cessation:Counseling Given: No Comments:Pt quit 30 yrs ago Alcohol Use [...] Orientation Straight 05/08/2024 10 :40 PM EST Obstetrics History Last Filed Vital Signs Vital Sign Reading Time Taken Comments Blood Pressure 139/76 05/09/2024 2:39 PM EST Pulse 77 05/09/2024 2:39 PM EST Temperature 37 ??C (98.6 ??F) 05/09/2024 1:30 PM EST Respiratory Rate 16 05/09/2024 1:45 PM EST Oxygen Saturation 93% 05/09/2024 2:39 PM EST Inhaled Oxygen Concentration - - Weight 64.9 kg (143 lb) 05/08/2024 10:49 PM EST Height 157.4 cm (5' 1.97 ) 05/08/2024 10:[address] Body Mass Index 26.18 05/08/2024 10:49 PM EST Plan of Treatment Health Maintenance Due Date Last Done Comments Breast Cancer Screening 1955 DTaP,Tdap,and Td Vaccines (1 - Tdap) 1973 Pneumococcal Vaccine: 50+ Years (1 of 1 - PCV) 2004 Zoster Vaccines (1 of 2) 2004 COVID-19 Vaccine (3 - 2023-2 5 season) 2024 09/21/2020, 08/23/2020 Influenza Vaccine (#1) 2024 Cholesterol Screening (Lipid Panel) 05/08/2024 Colorectal Cancer Screening: Colonoscopy 05/08/2024 Depression Screening 05/08/2024 Hepatitis C Screening 05/08/2024 Osteoporosis Screening (Bone Density Screening) 05/08/2024 Social Influencers of Health Screening 05/08/2024 Hypertension/CHF/CAD Annual BMP Blood Test 05/08/2025 05/08/2024 Falls Risk Assessment 05/09/2025 05/09/2024 RSV Immunization Patients 60 + Years Old (1 - 1-dose 75+ series) 2029 HIB Vaccines Aged Out No longer eligi ble based on patient's age to complete this topic HPV Vaccines Aged Out No longer eligi ble based on patient's age to complete this topic Hepatitis A Vaccines Aged Out No long er eligible based on patient's age to complete this topic Hepatitis B Vaccines Aged Out No long er eligible based on patient's age to complete this topic IPV Vaccines Aged Out No longer eligi ble based on patient's age to complete this topic MMR Vaccines Aged Out No longer eligi ble based on patient's age to complete this topic Meningococcal ACWY Vaccine Aged Out N o longer eligible based on patient's age to complete this topic Meningococcal B Vacine Aged Out No lo nger eligible based on patient's age to complete this topic RSV Immunization Patients Under 20 months Aged Out No longer eligible b ased on patient's age to complete this topic Varicella Vaccines Aged Out No longer eligible based on patient's age to complete this topic Medical Devices Implanted Type Area Cloth Spreader Device Identifier Shelf Expiration Date Model / Serial / Lot Plate Dvr Crsslck Nrw Mini t - [id number] - [id number] Implanted:Qty: 1 on 05/09/2024 by Diane Gonsales MD at [facility] Internal and External Fixation Left: Wrist [employer] [id number] / [id number] / [id number] Screw Lprof Nonlck 2.7x13mm - [id number] - [id number] Implanted:Qty: 1 on 05/09/2024 by Diane Gonsales MD at [facility] Internal and External Fixation Left: Wrist [employer] [id number] / [id number] / [id number] Screw Lk Sq Drv 2.7x18mm - [id number] - [id number] Implanted:Qty: 2 on 05/09/2024 by Diane Gonsales MD at [facility] Internal and External Fixation Left: Wrist [employer] [id number] / [id number] / [id number] Screw Lk Sq Drv 2.7x20mm - [id number] - [id number] Implanted:Qty: 2 on 05/09/2024 by Diane Gonsales MD at [facility] Internal and External Fixation Left: Wrist [employer] [id number] / [id number] / 0000 Screw Lk Sq Drv 2.7x16mm - [id number] - [id number] Implanted:Qty: 2 on 05/09/2024 by Diane Gonsales MD at [facility] Internal and External Fixation Left: Wrist [employer] [id number] / [id number] / [id number] Screw Lk Sq Drv 2.7x14mm - [id number] - [id number] Implanted:Qty: 2 on 05/09/2024 by Diane Gonsales MD at [facility] Internal and External Fixation Left: Wrist [employer] [id number] / [id number] / [id number] Procedures Procedure Name Priority Date/Time Associated Diagnosis Comments XR WRIST 3+ VIEWS LEFT Routine 08/15/2024 8:28 AM EST Pain XR WRIST 3+ VIEWS LEFT Routine 07/04/2024 8:23 AM EST Pain BASIC METABOLIC PANEL STAT 05/08/2024 10:52 AM EST from Last 3 Months or Most Recently Relevant to Health Maintenance Results * XR Wrist 3+ Views Left (08/15/2024 8:28 AM EST) Only the most recent of2 resultswithin the time period is included. Narrative RIS PACS/VR - 08/15/2024 8:28 AM EST This order has been auto-finalized and does not contain a result. us Jimmy Zhang MD IMG XR PROCEDURES Final Resul t RIS PACS/VR * (ABNORMAL) Basic Metabolic Panel (BMP) (05/08/2024 10:52 AM EST) Sodium 140 133 - 145 mmol/L LAB CHEMISTRY METHOD 05/08/2024 11:32 AM [facility] Potassium 3.8 3.5 - 5.5 mmol/L LAB CHEMISTRY METHOD 05/08/2024 11:32 AM [facility] Chloride 106 96 - 110 mmol/L LAB CHEMISTRY METHOD 05/08/2024 11:32 AM [facility] CO2 26 21 - 32 mmol/L LAB CHEMISTRY METHOD 05/08/2024 11:32 AM [facility] Anion Gap 8 3 - 11 LAB CHEMISTRY METHOD 05/08/2024 11:32 AM [facility] Glucose 111(H) 70 - 100 mg/dL LAB CHEMISTRY METHOD 05/08/2024 11:32 AM [facility] BUN 15 5 - 25 mg/dL LAB CHEMISTRY METHOD 05/08/2024 11:32 AM [facility] Creatinine 0.82 0.50 - 1.10 mg/dL LAB CHEMISTRY METHOD 05/08/2024 11:32 AM [facility] eGFR 78 >=60 mL/min/1. 73m2 LAB CHEMISTRY METHOD 05/08/2024 11:32 AM [facility] Comment:Calculation based on the??Chronic Kidney Disease Epidemiology Collaboration (CKD-EPI) equation refit??without adjustment for race. BUN/Creatinine Ratio 18.3 LAB CHEMISTRY METHOD 05/08/2024 11:32 AM [facility] Calcium 9.8 8.5 - 10.5 mg/dL LAB CHEMISTRY METHOD 05/08/2024 11:32 AM [facility] Blood Venous blood specimen / Unknown Venipuncture / Unknown 05/08/2024 10:52 AM EST 05/08/2024 11:08 AM EST us Luisa LING LAB BLOOD ORDERABLES Final Resu lt [facility] [place] ([facility] [address] [place] [address], [place] [phone] from Last 3 Months or Most Recently Relevant to Health Maintenance Insurance [facility] MEDICAID ADVANTAGE [address] [place] [address] Advance Directives * Full Code - Default (Latest Code Status on File) Date Activated Date Inactivated Comments 05/08/2024 11:46 AM 05/09/2024 7:27 PM This is ord er is used when code status has not been discussed with the patient, or code status is otherwise unknown/unconfirmed To update the patient's code status, place a code status order. Do not modify or discontinue any currently active code status orders. Care Teams Drywall Stripper Helper Relationship Specialty Start Date End Date Storm Dubon MD [address] [place] [address] [address] JACINTA Szymanski PCP - General Internal Medicine 05/08/24
--- OUTSIDE RECORDS SUMMARY | 2024-09-15 17:58 | XMS_ITS | Patient Health Record ---
Author Organization [facility] Address [address] [place] [address] Care Team Providers Care Service Attendant Name Role Phone Storm Dubon MD Primary Care Provider Cody Saunders Unavailable [phone] Allergies No Known Allergies Results Component Value Reference Range Notes Pathology Reviewed date:06/23/2024 06:50:18 PM Interpretation: Performing Lab:[facility], [address] [place] [phone] Notes/Report: Name: Jc Barros Age/Sex: 68/F : 1955 Unit#: [id number] Attend Dr: Cody Tran MD Re01/04/24 Status : [facility] Location: [facility] Disch: SPEC : [id number] RECD : 01/04/245081 STATUS: JOSÉ MIGUEL TROY NUM: [id number] RADHA: 01/04/24-[address] [facility] [address]: Cody Tran MD ENTERED: 01/04/24-14 05 SP TYPE: Surgical OTHR DR: Storm Dubon MD ORDERED: HE Stain/3, Gross Micro L4 Diagnosis Colon, 35 cm, polype ctomy: Sessile serrated lesion/polyp; negative for cytologic dysplasia. Clinical History Pre-Op Dx: Screening Post-Op Dx: Colon po lyp, diverticulosis and hemorrhoids Microscopic Description Microscopic sections reviewed. Material Received Polyp at 35 Gross Description Received in formalin labeled ?polyp at 35? is a 1.0 cm velvety, hyperemic and congested, barr-pink papular tis charo fragment. The resected base is inked and the specimen is sectioned and entirely submitt ed in a cassette labeled A. CEDS Copies To: Storm Dubon MD [facility] [address] [place] [address] Drive [address] [place], [place] [id number] Cody Tran MD [facility] [address] [place] [address] [address] [place] [address] Signed (si gnature on file) Song Kaplan MD 01/06/24 1137 END OF REPORT Reason For Referral No Information Medications Medication SIG (Take, Route, Frequency, Duration) Notes Start Date End Date Status Lisinopril 5 MG Orally Acti ve Levothyroxine Sodium 25 MCG 1 tablet on an empty stomach in the morning Orally Once a day Active Omeprazole 40 MG 1 capsule Orally Onc e a day Active Omeprazole 20 MG TAKE 1 CAPSULE BY MO UTH EVERY DAY for 90 Active Immunizations Vaccine Route Administration Date Status Comme nts Influenza Unknown 04/05/2022 Administered Problems Problem Type SNOMED Code ICD Code Onset Dates Problem Status W/U Status Risk Notes Problem 585272315 Encounter for screening for malignant neoplasm of colon (Z12.11) Active confirmed Problem History of polyp of colon (situation) (133801326) Personal history of colonic polyps (Z86.010) Active confirmed Problem Diverticular disease of colon (766481851) Diverticulosis of large intestine without perforation or abscess without bleeding (K57.30) Active confirmed Problem Screening for malignant neoplasm of rectum (823094200) Encounter for screening for malignant neoplasm of rectum (Z12.12) Active confirmed Problem 110965840 Gastroesophageal reflux disease with esophagitis (K21.0) Active confirmed Problem 43947236 Preprocedural examination (Z01.818) Active confirmed Problem 840653738 Family history o f colon cancer (Z80.0) Active confirmed Problem 19045513 Esophageal stricture (K22.2) Active confirmed Problem 84511314 Hiatal hernia (K44.9) Active confirmed Problem 68183328 Dysphagia, unspecified type (R13.10) Active confirmed Problem Diverticulosis of colon (989426098) Diverticulosis of colon (K57.30) Active confirmed Vital Signs Blood pressure diastolic 00 mm Hg 10/01/2023 Height 62 in 10/01/2023 Blood pressure systolic 00 mm Hg 10/01/2023 Weight 141 lbs 10/01/2023 BMI 25.79 kg/m2 10/01/2023 Encounters Encounter Location Date Provider Diagnosis [facility] Outpatient [address], [place] [phone] 01/04/2024 Cody Tran Encounter for screen ing colonoscopy Z12.11 ; Colon polyps K63.5 and Diverticulosis of large intestine without perforation or abscess without bleeding K57.30 [facility] [address] [place] [address] 10/01/2023 Cody Tran Encounter for screen ing for malignant neoplasm of colon Z12.11 ; Esophageal stricture K22.2 ; Preprocedural examination Z01.818 ; Personal history of colonic polyps Z86.010 and Hiatal hernia K44.9 [facility] [address] JAC[place] Szymanski [address] 10/01/2023 Cody Tran [facility] [address] [place]zymans[place] [address] 06/23/2024 Cody Tran Assessments Encounter Date Diagnosis (ICD Code) Assessment Notes Treatment Notes Treatment Clinical Notes Section Notes 01/04/2024 Encounter for screening colonoscopy (ICD-10 - Z12.11) 01/04/2024 Colon polyps (ICD-10 - K63.5) 10/01/2023 Encounter for screening for malignant neoplasm of colon (ICD-10 - Z12.11) Overall, Norbert appears quite well. I did recommend a followup colonoscopy for further evaluation given the relatively large and flat rectal polyp removed last year. It would be important to be sure no residual polyp tissue remains at that site. We did review the rationale for this in regard to colorectal cancer prevention. Full consent is obtained for this, including risks of bleeding and perforation. The procedure will be done with monitored anesthesia care. If this colonoscopy does not show any significant findings then I think we would proceed with a followup colonoscopy 3 years thereafter. Her history of reflux and the previous esophageal stricture remain quite stable on her daily 40 mg of omeprazole. I did advise her to continue this long-term. Norbert was comfortable with this plan. Thank you again for allowing me to participate in Norbert's care. I shall continue to keep you advised of her progress. 10/01/2023 Esophageal stricture (ICD-10 - K22.2) Overall, Norbert appears quite well. I did recommend a followup colonoscopy for further evaluation given the relatively large and flat rectal polyp removed last year. It would be important to be sure no residual polyp tissue remains at that site. We did review the rationale for this in regard to colorectal cancer prevention. Full consent is obtained for this, including risks of bleeding and perforation. The procedure will be done with monitored anesthesia care. If this colonoscopy does not show any significant findings then I think we would proceed with a followup colonoscopy 3 years thereafter. Her history of reflux and the previous esophageal stricture remain quite stable on her daily 40 mg of omeprazole. I did advise her to continue this long-term. Norbert was comfortable with this plan. Thank you again for allowing me to participate in Norbert's care. I shall continue to keep you advised of her progress. 01/04/2024 Diverticulosis of large intestine without perforation or abscess without bleeding (ICD-10 - K57.30) 10/01/2023 Preprocedural examination (ICD-10 - Z01.818) Overall, Norbert appears quite well. I did recommend a followup colonoscopy for further evaluation given the relatively large and flat rectal polyp removed last year. It would be important to be sure no residual polyp tissue remains at that site. We did review the rationale for this in regard to colorectal cancer prevention. Full consent is obtained for this, including risks of bleeding and perforation. The procedure will be done with monitored anesthesia care. If this colonoscopy does not show any significant findings then I think we would proceed with a followup colonoscopy 3 years thereafter. Her history of reflux and the previous esophageal stricture remain quite stable on her daily 40 mg of omeprazole. I did advise her to continue this long-term. Norbert was comfortable with this plan. Thank you again for allowing me to participate in Norbert's care. I shall continue to keep you advised of her progress. 10/01/2023 Personal history of colonic polyps (ICD-10 - Z86.010) Overall, Norbert appears quite well. I did recommend a followup colonoscopy for further evaluation given the relatively large and flat rectal polyp removed last year. It would be important to be sure no residual polyp tissue remains at that site. We did review the rationale for this in regard to colorectal cancer prevention. Full consent is obtained for this, including risks of bleeding and perforation. The procedure will be done with monitored anesthesia care. If this colonoscopy does not show any significant findings then I think we would proceed with a followup colonoscopy 3 years thereafter. Her history of reflux and the previous esophageal stricture remain quite stable on her daily 40 mg of omeprazole. I did advise her to continue this long-term. Norbert was comfortable with this plan. Thank you again for allowing me to participate in Norbert's care. I shall continue to keep you advised of her progress. 10/01/2023 Hiatal hernia (ICD-10 - K44.9) Overall, Norbert appears quite well. I did recommend a followup colonoscopy for further evaluation given the relatively large and flat rectal polyp removed last year. It would be important to be sure no residual polyp tissue remains at that site. We did review the rationale for this in regard to colorectal cancer prevention. Full consent is obtained for this, including risks of bleeding and perforation. The procedure will be done with monitored anesthesia care. If this colonoscopy does not show any significant findings then I think we would proceed with a followup colonoscopy 3 years thereafter. Her history of reflux and the previous esophageal stricture remain quite stable on her daily 40 mg of omeprazole. I did advise her to continue this long-term. Norbert was comfortable with this plan. Thank you again for allowing me to participate in Norbert's care. I shall continue to keep you advised of her progress. Plan Of Treatment Future Test Test Name Order Date UPPER GI ENDOSCOPY BALLOOON DILATION OF ESOPH 07/30/2016 COLONOSCOPY 07/30/2016 COLONOSCOPY 07/08/2022 COLONOSCOPY 10/01/2023 Next Appt Details Provider Name:Cody Finn Tran , 11/15/2024 10:10:00 AM, [address] [place] [address], [address], [place], [address], Insurance Providers Payer Name Payer Address Payer Phone Subscriber Number Group Number Insured Name Patient Relationship to Insured Coverage Start Date Coverage End Date [facility] [address] [place] [phone] [id number] NORBERT BARROS Self - patient is the insured Medical (General) History Medical History History ICD Code Denies [place],DM,CVA,Lung disease,renal dise ase HTN Negative screening colonosco py in 2004 except for some diverticulosis and internal hemorrhoids Hypothyroidism Negative screening colonosco py in 10/2016 other than some diverticulosis and internal hemorrhoids GERD--upper endoscopy in Oct revealed esophagitis, an esophageal stricture, and a moderately large hiatal hernia--there was no Benitez's esophagus--- the stricture was dilated with balloons--- a followup endoscopy in December of 2016 revealed healing of the esophagitis and an improved stricture--- the stricture was further dilated up to an 18 mm balloon Screening colonoscopy in Aug revealed an approximately 2 cm flat and lobulated rectal tubular adenoma that was removed and marked with submucosal ink. Surgical History Surgery Date(Month/Year)
--- OUTSIDE RECORDS SUMMARY | 2024-09-15 17:58 | XMS_ITS ---
Author Organization [facility] Address [address] [place] [address] Care Team Providers Care Is Manager Name Role Phone Storm Dubon MD Primary Care Provider Cody Saunders [phone] Encounters Encounter Location Date Provider Diagnosis [facility] [address] [facility] [address] [place] [address] 10/01/2023 Cody Tran Plan Of Treatment Next Appt Details Provider Name:Cody Tran , 11/15/2024 10:10:00 AM, [address], [address], [place], [address], Progress Notes * NORBERT CONTRERAS MDOB:11/1955 (68 yo F)Acc No.[id number]:10/01/2023 Patient:?NORBERT CONTRERAS :1955???Age:68 Y???Sex:Female Address:[address] [place] [address] Subjective: * Chief Complaints: * ??? * Medical History:? * Surgical History:? * Hospitalization/Major Diagno stic Procedure:? * Medications:? Objective: Assessment: Plan: * Treatment: * Procedure Codes:? * Preventive Medicine:? ??Urinary Incontinence:?Urinary Incontinence?Assessment:?Absent,?Plan of care documented:?No, reason not specified.? * true * Date:? Generated for Eviei sammie/Joyce/eTransmitting on:?09/15/2024 05:58 PM EDT
--- OUTSIDE RECORDS SUMMARY | 2024-09-15 17:58 | XMS_ITS ---
Author Organization [facility] Address [address] [place] [address] Care Team Providers Care Motor Driver Name Role Phone Storm Dubon MD Primary Care Provider Reuben louie Cody Tran Morgan [phone] REASON FOR VISIT screening,hx polyps Problems Problem Type SNOMED Code ICD Code Onset Dates Problem Status W/U Status Risk Notes Problem Diverticular disease of colon (554709474) Diverticulosis of large intestine without perforation or abscess without bleeding (K57.30) Active confirmed Encounters Encounter Location Date Provider Diagnosis [facility] Outpatient [address] [place] [phone] 01/04/2024 Cody Tran Encounter for scre ening [...] 10:10:00 AM, [address], [address], [place], [address], Progress Notes * NORBERT CONTRERAS MDOB:11/1955 (69 yo F)Acc No.[id number]:01/04/2024 COLON WITH MAC Patient:?NORBERT CONTRERAS Provider:?Cody Tran MD :1955???Age:68 Y???Sex:Female D ate:01/04/2024 Address:[address] [place] [address] Pcp:Storm Dubon MD Subjective: * Chief Complaints: * ???1. Screening,hx polyps. * Medical History:? Objective: * Vitals:? Assessment: * Assessment: 1.?Encounter for screening c olonoscopy - Z12.11 (Primary)???2.?Colon polyps - K63.5???3.?Diverticulosis of large intestine without perforation or abscess without bleeding - K57.30??? Plan: * Treatment: * Procedure Codes:?86695 LESIO N REMOVAL COLONOSCOPY, Modifiers: 33 , 11477 COLONOSCOPE, SUBMUCOUS INJ, Modifiers: 59 , 33 * * The named appointment provid er may or may not be the originator of this progress note, and it is not deemed complete until electronically signed by the appointment provider. Sign off status: Pending * Provider:?Cody Tran MD Date:? 024 Generated for Dilshad cochran/Joyce/Toñosmitting on:?09/15/2024 05:58 PM EDT
--- OUTSIDE RECORDS SUMMARY | 2024-09-15 17:59 | XMS_ITS ---
Author Organization [facility] Address [address] [place] [address] Care Team Providers Care Oem Sales Manager Name Role Phone Storm Dubon MD Primary Care Provider Cody Saunders [phone] REASON FOR VISIT colon recall date Encounters Encounter Location Date Provider Diagnosis [facility] [address] [place] [address] 06/23/2024 Cody Tran Plan Of Treatment Next Appt Details Provider Name:Cody Tran , 11/15/2024 10:10:00 AM, [address], [address], [place], [address], Progress Notes * NORBERT CONTRERAS MDOB:11/1955 (68 yo F)Acc No.[id number]:06/23/2024 Patient:?NORBERT CONTRERAS :1955???Age:68 Y???Sex:Female Address:[address] [place] [address] * true * Date:? Generated for Eviei sammie/Joyce/eTransmitting on:?09/15/2024 05:58 PM EDT
== END 2024-09-15 14:53 | disposition home or self-care (01) ==
LOC: HO.HMCHD 14:09
PROVIDERS: PCP Internal Medicine; Visit Provider Internal Medicine
DX: I10 Essential (primary) hypertension (principal); E03.9 Hypothyroidism, unspecified; M85.80 Other specified disorders of bone density and structure, unspecified site

== ENCOUNTER → 2024-09-15 14:09 | Outpatient (BNVA) | payer MEDICARE, SELFPAY | PROVIDERS: PCP Internal Medicine; Visit Provider Internal Medicine | DX: I10 Essential (primary) hypertension (principal); E03.9 Hypothyroidism, unspecified; K21.9 Gastro-esophageal reflux disease without esophagitis; M85.80 Other specified disorders of bone density and structure, unspecified site; Z13.228 Encounter for screening for other metabolic disorders; Z79.899 Other long term (current) drug therapy | CPT/HCPCS: 96127; 99212 ==

== ENCOUNTER 2025-02-08 08:04 | Day surgery (SDC) | payer MEDICARE, SELFPAY ==
--- OUTSIDE RECORDS SUMMARY | 2024-01-04 07:40 | XMS_ITS ---
Author Organization [facility] Address [address] [place] [address] Care Team Providers Care Storeroom Supervisor Name Role Phone Teagan Rushing M.D. Primary Care Provider Cody Carrion Unavailable [phone] REASON FOR VISIT screening,hx polyps Problems Problem Type SNOMED Code ICD Code Onset Dates Problem Status W/U Status Risk Notes Problem Diverticulosis o f large intestine without perforation or abscess without bleeding (K57.30) Active confirmed Encounters Encounter Location Date Provider Diagnosis [facility] [place] [address] [place] [phone] 01/04/2024 Cody Tran Encounter for scre ening [...] bleeding (ICD-10 - K57.30) Plan Of Treatment Next Appt Details Provider Name:Cody Tran , 02/08/2025 10:20:00 AM, [address] [place] [address], [phone], Progress Notes * NORBERT CONTRERAS MDOB:11/1955 (69 yo F)Acc No.[id number]:01/04/2024 COLON WITH MAC Patient: NORBERT MICHAELS Provider: José Tran MD :1955 A ge:68 Y S ex:Female Date:01/04/2024 Address:[address] [place] [address] [facility] Pcp:Teagan Rushing M.D. Subjective: * Chief Complaints: [...] 5385 LESION REMOVAL COLONOSCOPY, Modifiers: 33 , 40134 COLONOSCOPE, SUBMUCOUS INJ, Modifiers: 59 , 33 * * The named appointment provid er may or may not be the originator of this progress note, and it is not deemed complete until electronically signed by the appointment provider. Sign off status: Pending * Provider: José Tran MD Date: 01/04/2024 Generated for Dilshad cochran/Joyce/Annieitting on: 01/12/2025 01:39 PM EDT
--- OUTSIDE RECORDS SUMMARY | 2025-01-12 13:40 | XMS_ITS | Clinical Summary ---
Author Organization [facility] Address [address] [place] [address] Phone Care Team Providers Care Sewer Digger Name Role Phone Storm Dubon MD Primary Care Provider [phone] Allergies No known active allergies Medications lisinopriL [...] Encounters Date Type Department Care Team Description 11/14/2024 7:38 AM EDT - 11/14/2024 11:59 PM EDT Hospital Encounter [facility] [address] [place] [address] Pain Discharge Disposition: Home or Self Care [...] 77 05/09/2024 2:39 PM EST Temperature 37 C (98.6 F) 05/09/2024 1:30 PM EST Respiratory Rate 16 [...] - 2023-2 5 season) 2024 09/21/2020, 08/23/2020 Cholesterol Screening (Lipid Panel) 05/08/2024 Colorectal Cancer Screening: Colonoscopy 05/08/2024 Depression Screening 05/08/2024 Hepatitis C Screening 05/08/2024 Osteoporosis Screening (Bone Density Screening) 05/08/2024 Social Influencers of Health Screening 05/08/2024 Influenza Vaccine (#1) 2025 Hypertension/CHF/CAD Annual BMP Blood Test 05/08/2025 05/08/2024 Falls Risk Assessment 05/09/2025 05/09/2024 RSV Immunization Adult Patients (1 - 1-dose 75+ series) 2029 HIB [...] age to complete this topic Meningococcal B Vaccine Aged Out No l onger eligible based on patient's age to complete this topic RSV Immunization Patients Under 20 months Aged Out No longer eligible b ased on patient's age to complete this topic Varicella Vaccines Aged Out No longer eligible based on patient's age to complete this topic Medical Devices Implanted Type Area Charge Master Analyst Device Identifier Shelf Expiration Date Model / Serial / Lot Plate Dvr Crsslck Nrw Mini Lft - [id number] - [id number] Implanted:Qty: 1 on 05/09/2024 by Diane Gonsales MD at [facility] Internal and External Fixation Left: Wrist [employer] [id number] / [id number] / [id number] Screw Lprof Nonlck 2.7x13mm - [id number] - [id number] Implanted:Qty: 1 on 05/09/2024 by Diane Gonsales MD at [facility] Internal and External Fixation Left: Wrist [employer] [id number] / [id number] / [id number] Screw Lk Sq Drv 2.7x18mm - [id number] - [id number] Implanted:Qty: 2 on 05/09/2024 by Diane Gonsales MD at [facility] Internal and External Fixation Left: Wrist [employer] [id number] / [id number] / [id number] Screw Lk Sq Drv 2.7x20mm - [id number] - [id number] Implanted:Qty: 2 on 05/09/2024 by Diane Gonsales MD at [facility] Internal and External Fixation Left: Wrist [employer] [id number] / [id number] / 0000 Screw Lk Sq Drv 2.7x16mm - [id number] - [id number] Implanted:Qty: 2 on 05/09/2024 by Diane Gonsales MD at [facility] Internal and External Fixation Left: Wrist [employer] [id number] / [id number] / [id number] Screw Lk Sq Drv 2.7x14mm - [id number] - [id number] Implanted:Qty: 2 on 05/09/2024 by Diane Gonsales MD at [facility] Internal and External Fixation Left: Wrist [employer] [id number] / [id number] / [id number] Procedures Procedure Name Priority Date/Time Associated Diagnosis Comments XR WRIST 3+ VIEWS LEFT Routine 11/14/2024 8:33 AM EDT Pain BASIC METABOLIC PANEL STAT 05/08/2024 10:52 AM EST from Last 3 Months or Most Recently Relevant to Health Maintenance Results * XR Wrist 3+ Views Left (11/14/2024 8:33 AM EDT) Narrative RIS PACS/VR - 11/14/2024 8:34 AM EDT This order has been auto-finalized and does not contain a result. us Emmanuel Clancy MD IMG XR PROCEDURES Final R esult RIS PACS/VR * (ABNORMAL) Basic Metabolic Panel (BMP) (05/08/2024 10:52 AM EST) Sodium 140 133 - 145 mmol/L LAB CHEMISTRY METHOD 05/08/2024 11:32 AM EST [facility] Potassium 3.8 3.5 - 5.5 mmol/L LAB CHEMISTRY METHOD 05/08/2024 11:32 AM [facility] Chloride 106 96 - 110 mmol/L LAB CHEMISTRY METHOD 05/08/2024 11:32 AM [facility] CO2 26 21 - 32 mmol/L LAB CHEMISTRY METHOD 05/08/2024 11:32 AM [facility] Anion Gap 8 3 - 11 LAB CHEMISTRY METHOD 05/08/2024 11:32 AM [facility] Glucose 111(H) 70 - 100 mg/dL LAB CHEMISTRY METHOD 05/08/2024 11:32 AM [facility] BUN 15 5 - 25 mg/dL LAB CHEMISTRY METHOD 05/08/2024 11:32 AM [facility] Creatinine 0.82 0.50 - 1.10 mg/dL LAB CHEMISTRY METHOD 05/08/2024 11:32 AM [facility] eGFR 78 >=60 mL/min/1. 73m2 LAB CHEMISTRY METHOD 05/08/2024 11:32 AM [facility] Comment:Calculation based on the Chronic Kidney Disease Epidemiology Collaboration (CKD-EPI) equation refit without adjustment for race. BUN/Creatinine Ratio 18.3 LAB CHEMISTRY METHOD 05/08/2024 11:32 AM [facility] Calcium 9.8 8.5 - 10.5 mg/dL LAB CHEMISTRY METHOD 05/08/2024 11:32 AM [facility] Blood Venous blood specimen / Unknown Venipuncture / Unknown 05/08/2024 10:52 AM EST 05/08/2024 11:08 AM EST us Luisa LING LAB BLOOD ORDERABLES Final Resu lt [facility] [address] [place] [address], [place] [phone] from Last 3 Months or Most Recently Relevant to Health Maintenance Insurance [facility] MEDICAID ADVANTAGE [address] [place] [address] Advance Directives * Full Code - Default [...] currently active code status orders. Care Teams Sewer Digger Relationship Specialty Start Date End Date Storm Dubon MD [address] [place] [address] [address] [place] PCP - General Internal Medicine 05/08/24
[2025-02-06 14:28] VITALS: BMI 26.0
--- NOTE | 2025-02-07 08:37 | HO.ANESPROP2 ---
Documented by User: Rachell Orlando NP 02/07/25 08:37 HPI - Anesthesia Eval Consult details Narrative: 69yo F for Colonoscopy PMFSH Active Problems Active Problems: All Active Problems Screening for metabolic disorder (Acute) Osteopenia (Acute) HTN (hypertension) (Acute) Hypothyroid (Acute) Past Medical History Medical History Osteopenia GERD (gastroesophageal reflux disease) Hypothyroid HTN (hypertension) Family History Family History Father Stroke Mother Osteoporosis Hypertension Family history of problems with anesthesia: No Surgical History Surgical History History of surgery on arm H/O colonoscopy Hx of esophagogastroduodenoscopy History of Problems with Anesthesia: No Social History Social History Household Members: Spouse Housing: House Alcohol intake: current Alcohol intake frequency: 0-2 drinks per day Patient Tobacco Use Status: Former Tobacco user Use of substances other than those prescribed or required for medical reasons: No Are you DNR?: No Advance Directives: No Advance Directives Information Provided: Yes service: No Current occupational status: retired Cognitive needs: No Hearing needs: No Vision needs: Yes (rx glasses/contact) Meds Allergies Allergy/AdvReac Type Severity Reaction Status Date / Time No Known Allergies Allergy Verified 02/08/25 08:31 Home Medications ?Medication ?Instructions ?Recorded ?Confirmed ?Last Taken ?Type levothyroxine 25 mcg tablet 1 tab PO DAILY 08/19/22 02/08/25 08/19/22 History lisinopril 5 mg tablet 1 tab PO DAILY 08/19/22 02/08/25 08/20/22 History omeprazole 20 mg capsule,delayed 1 cap PO DAILY 08/19/22 02/08/25 08/19/22 History release Exam Height,Weight and Vital Signs: Height 5 ft 2 in Weight 64.41 kg Assessment and Plan Assessment Anesthesia Assessment: Chart Reviewed Final Anesthetic Review Family History of Problems with Anesthesia: No History of Problems with Anesthesia: No Documented by User: Seth Haines MD 02/08/25 10:09 [facility] Past Medical History Medical History Osteopenia GERD (gastroesophageal reflux disease) Hypothyroid HTN (hypertension) Functional capacity: independent ambulation Patient : No Family History Family History Father Stroke Mother Osteoporosis Hypertension Surgical History Surgical History History of surgery on arm H/O colonoscopy Hx of esophagogastroduodenoscopy Social History Social History Household Members: Spouse Housing: House Alcohol intake: current Alcohol intake frequency: 0-2 drinks per day Patient Tobacco Use Status: Former Tobacco user Use of substances other than those prescribed or required for medical reasons: No Are you DNR?: No Advance Directives: No Advance Directives Information Provided: Yes service: No Current occupational status: retired Cognitive needs: No Hearing needs: No Vision needs: Yes (rx glasses/contact) Meds Allergies Allergy/AdvReac Type Severity Reaction Status Date / Time No Known Allergies Allergy Verified 02/08/25 08:31 Home Medications ?Medication ?Instructions ?Recorded ?Confirmed ?Last Taken ?Type levothyroxine 25 mcg tablet 1 tab PO DAILY 08/19/22 02/08/25 08/19/22 History lisinopril 5 mg tablet 1 tab PO DAILY 08/19/22 02/08/25 08/20/22 History omeprazole 20 mg capsule,delayed 1 cap PO DAILY 08/19/22 02/08/25 08/19/22 History release Exam Exam Date and Time: 02/08/2026 Airway Mallampati Class: II Loose/Missing/Broken Teeth: No Heart: rrr Lungs: cta Other: normal Assessment and Plan Final Anesthetic Review NPO: Yes ASA Class: II Final Preanesthetic Review: No Changes in Pt Med Stat, Meds/Allgs Chart Reviewed, Consent Obtained/Reviewed and Anes Risks/Benef Reviewed Patient Risk: Low Procedure Risk: Low Anesthetic Plan Anesthetic Plan: MAC: Disposition: Standard PACU
[2025-02-08 08:28] VITALS: BMI 25.4
[2025-02-08 08:32] VITALS: BP 148/90; PULSE 65; RESP 15; TEMP 36.7; O2SAT 94
[2025-02-08] MEDS: Lactated Ringers 1,000 ML 100 ML IVCONT (08:39)
[2025-02-08 11:04] VITALS: BP 133/61; PULSE 66; RESP 18; TEMP 36.1; O2SAT 97
--- NOTE | 2025-02-08 11:07 | P.BOP_ITS ---
Brief Operative Note Date of Service: 02/08/25 Pre-op diagnosis: Screening Post-op diagnosis: other (Diverticulosis) Procedure: Colonoscopy to the cecum and TI Surgeon: Cody Tran MD Anesthesia: MAC Was an Equipment Scheduler used for this Procedure?: No Estimated blood loss (mL): 0 Pathology: none sent Condition: stable Disposition: PACU
[2025-02-08 11:19] VITALS: BP 150/75; PULSE 64; RESP 18; TEMP 36.2; O2SAT 95
--- NOTE | 2025-02-09 13:16 | OP_ITS ---
DATE OF SERVICE: 02/08/2025 SURGEON: Cody Tran MD INDICATIONS: The patient presents for evaluation of colorectal cancer screening, personal history of colon polyps, family history of colon cancer. Full consent has been obtained from her for this, including risks of bleeding and perforation. PREOPERATIVE DIAGNOSIS: POSTOPERATIVE DIAGNOSIS: PROCEDURE PERFORMED: Colonoscopy to the cecum and terminal ileum. ESTIMATED BLOOD LOSS: COMPLICATIONS: ANESTHESIA: Medication used, monitored anesthesia care. ASSISTANTS: SPECIMENS: PREOPERATIVE DIAGNOSES: Colorectal cancer screening, personal history of colon polyps, family history of colon cancer. POSTOPERATIVE DIAGNOSES: Colorectal cancer screening, personal history of colon polyps, family history of colon cancer, diverticulosis, and internal hemorrhoids. DESCRIPTION OF PROCEDURE: The patient was placed in the left lateral decubitus position. The digital rectal exam revealed no abnormalities. The Olympus video pediatric colonoscope was entered into the rectum and was advanced easily to the cecum. Once in the cecum, I did identify normal-appearing cecal pouch. The entire cecal pouch was well visualized and appeared normal. The appendiceal orifice appeared normal. The terminal ileum was cannulated and appeared normal. The scope was withdrawn back in the colon. The cecum was again well visualized and appeared normal, including the appendiceal orifice. The scope was slowly withdrawn assessing all mucosal surfaces carefully. Preparation was excellent. I did not visualize any sign of polyps, colitis, nor angiodysplasia. At approximately 30 cm were 2 submucosal ink begum noted but no sign of any residual polyp in between them nor in that area. There was a mild amount of sigmoid diverticulosis. In the distal rectum, seen best in the forward viewing position, was an area of some scarring with submucosal ink begum on each side of that. There was no sign of any residual polyp tissue either. The scope was retroflexed visualizing some internal hemorrhoids, but the remainder of the rectum appeared normal. The scope was straightened and withdrawn from the patient. She tolerated the procedure well and was returned to the recovery area in stable condition. IMPRESSION: 1. Diverticulosis. 2. Internal hemorrhoids. PLAN: Given her previous history and family history and today's negative exam, I would recommend a repeat colonoscopy within 2 to 3 years for further surveillance. She will otherwise see me on a p.r.n. basis. MD BRIGIDO Dietrich/SOLANGE / [phone]
== END 2025-02-08 11:50 | disposition home or self-care (01) ==
PROVIDERS: PCP Internal Medicine; Visit Provider Internal Medicine
PROC: 0DJD8ZZ Inspection of Lower Intestinal Tract, Via Natural or Artificial Opening Endoscopic (ICD-10-PCS; CPT 45378; principal; 2025-02-08 10:20)
DX: Z12.11 Encounter for screening for malignant neoplasm of colon (principal); K57.30 Diverticulosis of large intestine without perforation or abscess without bleeding; K64.8 Other hemorrhoids; Z80.0 Family history of malignant neoplasm of digestive organs; Z86.0101 Personal history of adenomatous and serrated colon polyps; I10 Essential (primary) hypertension; E03.9 Hypothyroidism, unspecified; Z79.899 Other long term (current) drug therapy
CPT/HCPCS: G0105; J2003; J2704; J3010

== ENCOUNTER 2025-02-16 08:55 | Outpatient (AMB) | payer MEDICARE, SELFPAY ==
--- OUTSIDE RECORDS SUMMARY | 2024-01-04 07:40 | XMS_ITS ---
Author Organization [facility] Address [address] [place] [id number] Care Team Providers Care Project Designer Name Role Phone Teagan Rushing M.D. Primary Care Provider Cody Carrion Unavailable [phone] REASON FOR VISIT screening,hx polyps Problems Problem Type SNOMED Code ICD Code Onset Dates Problem Status W/U Status Risk Notes Problem Diverticulosis o f large intestine without perforation or abscess without bleeding (K57.30) Active confirmed Encounters Encounter Location Date Provider Diagnosis [facility] [place] [address] [place] [id number] 01/04/2024 Cody Tran Encounter for scre ening colonoscopy Z12.11 ; Colon polyps K63.5 and Diverticulosis of large intestine without perforation or abscess without bleeding K57.30 Assessments Encounter Date Diagnosis (ICD Code) Assessment Notes Treatment Notes Treatment Clinical Notes Section Notes 01/04/2024 Encounter for screening colonoscopy (ICD-10 - Z12.11) 01/04/2024 Colon polyps (ICD-10 - K63.5) 01/04/2024 Diverticulosis of large intestine without perforation or abscess without bleeding (ICD-10 - K57.30) Plan Of Treatment No Information Progress Notes * NORBERT CONTRERAS MDOB:11/1955 (69 yo F)Acc No.[id number]:01/04/2024 COLON WITH MAC Patient: Christina FRANKLIN NORBERT KRAMER Provider: José Tran MD :1955 A ge:68 Y S ex:Female Date:01/04/2024 Address:[address] [place], [place] [address] Pcp:Teagan Rushing M.D. Subjective: * Chief Complaints: * 1 . Screening,hx polyps. * Medical History: Objective: * Vitals: Assessment: * Assessment: 1. E ncounter for screening colonoscopy - Z12.11 (Primary) 2 . C olon polyps - K63.5 3 . D iverticulosis of large intestine without perforation or abscess without bleeding - K57.30 Plan: * Treatment: * Procedure Codes: 4 5385 LESION REMOVAL COLONOSCOPY, Modifiers: 33 , 38571 COLONOSCOPE, SUBMUCOUS INJ, Modifiers: 59 , 33 * * The named appointment provid er may or may not be the originator of this progress note, and it is not deemed complete until electronically signed by the appointment provider. Sign off status: Pending * Provider: José Tran MD Date: 0 01/04/2024 Generated for Dilshad cochran/Joyce/Annieitting on: 0 02/16/2025 09:15 AM EDT
[2025-02-16 08:57] VITALS: BP 138/80; PULSE 72; TEMP 36.6; O2SAT 98; BMI 26.3
--- NOTE | 2025-02-16 08:57 | MHC.PC.OV ---
Vital Signs 02/16/25 08:57 Height 5 ft 2 in Weight 144 lb BMI 26.3 BP 138/80 Blood Pressure Location Lt brachial Position Sitting Pulse 72 Pulse Source Pulse Oximeter Temp 97.8 F Temp Source Axillary Pulse Oximetry (%) 98 Oxygen Delivery Method Room Air Intake Visit Reasons: 6 mo. f/u Post Graduate Intern Required: No Accompanied by: Self / Same As Patient Allergies No Known Allergies Allergy (Verified 02/16/25 09:05) Tobacco use date assessed: 02/16/25 Fall risk assessment: No Falls in past year Last assessed Fall Risk: 02/16/25 Dental Screening Dental Screen Date: 02/16/25 Did you have a dental visit in the last 12 months?: Yes Did you have a dental problem in the last 6 months where you did not have access to dental care?: No HPI HPI Comments History of Present Illness Details 69 year old female with a past medical history of hypertension, hypothyroid, GERD presenting for follow up. Last seen May 2024. CV: On lisinopril 5mg daily. Blood pressure controlled. Denies chest pain, shortness of breath. GERD: On omeprazole 20mg daily. Symptoms controlled Hypothyroid: on levothyroxine 25mcg daily. Mammo 03/2024 Dexa 03/2023 Colonoscopy 02/2025 recommend 2-3 year repeat ROS CONSTITUTIONAL: Denies weight loss, fever and chills. HEENT: Denies changes in vision and hearing. RESPIRATORY: Denies SOB and cough. CV: Denies palpitations and CP GI: Denies abdominal pain, nausea, vomiting and diarrhea. : Denies dysuria and urinary frequency. MSK: Denies new myalgia and joint pain. SKIN: Denies rash and pruritus. NEUROLOGICAL: Denies headache PSYCHIATRIC: Denies recent changes in mood. PHYSICAL EXAM: GENERAL: Alert and oriented x 3. NAD EYES: EOMI. Anicteric. HENT: Moist mucous membranes. No scleral icterus. No cervical lymphadenopathy. LUNGS: Clear to auscultation bilaterally. CARDIOVASCULAR: Regular rate and rhythm. No murmur. No JVD. ABDOMEN: Soft, non-tender +bs EXTREMITIES: No edema. Non-tender. SKIN: No rashes or lesions. Warm. NEUROLOGIC: No focal neurological deficits. CN II-XII grossly intact PSYCHIATRIC: Cooperative. Appropriate mood and affect [facility] Medical History (Updated 02/20/25 @ 13:18 by Teagan Rushing MD) Osteopenia GERD (gastroesophageal reflux disease) Hypothyroid HTN (hypertension) Surgical History History of surgery on arm H/O colonoscopy Hx of esophagogastroduodenoscopy Family History Father Stroke Mother Osteoporosis Hypertension Social History Household Members: Spouse Housing: House Alcohol intake: current Alcohol intake frequency: 0-2 drinks per day Patient Tobacco Use Status: Former Tobacco user e-Cigarette/Vaping Use: Former Use service: No Current occupational status: retired Cognitive needs: No Hearing needs: No Vision needs: Yes (rx glasses/contact) Questionnaire PHQ-9 Over the last 2 weeks, how often have you been bothered by any of the following problems? 1. Little interest or pleasure in doing things: not at all 2. Feeling down, depressed, or hopeless: not at all 3. Trouble falling or staying asleep, or sleeping too much: not at all 4. Feeling tired or having little energy: not at all 5. Poor appetite or overeating: not at all 6. Feeling bad about yourself - or that you are a failure or have let yourself or your family down: not at all 7. Trouble concentrating on things, such as reading the newspaper or watching television: not at all 8. Moving or speaking so slowly that other people could have noticed. Or the opposite - being so fidgety or restless that you have been moving around a lot more than usual: not at all 9. Thoughts that you would be better off or of hurting yourself in some way: not at all Total score: 0 Depression Screening Interpretation: Negative Depression Screening Done: Yes 48801 - PHQ-9 Billing: Yes Source: Developed by Drs. Cody Kaufman, Elenita Lacey, Endy Bass and colleagues, with an educational radha from [employer]. Thrive Questionnaire Date Thrive assessed: 02/16/25 I am a: Patient Within the past 12 months, did the food you bought not last and you didn't have the money to get more?: Never true Within the past 12 months, did you worry whether your food would run out before you got money to buy more?: Never true Do you have trouble paying for medicines?: No Do you have trouble getting transportation to medical appointments?: No Do you have trouble paying your heating and electricity bill?: No Do you have trouble taking care of your child, family member or friend?: No Do you have trouble with day-to-day activities such as bathing, preparing meals, shopping, managing finances, etc.?: No Are you currently unemployed and looking for a job?: No Are you interested in more education?: No THRIVE Score: 0 AUDIT C Alcohol Use Questionnaire (AUDIT-C) 1. How often do you have a drink containing alcohol?: Monthly or less 2. How many drinks containing alcohol do you have on a typical day when you are drinking?: 1 or 2 3. How often do you have six or more drinks on one occasion?: Less than monthly Total Score: 2 BETSY-7 AMB Questionnaire BETSY-7 Date BETSY - 7 assessed: 02/16/25 Feeling nervous, anxious, or on edge: 0 = Not at all Not being able to stop or control worryin = Not at all Worrying too much about different things: 0 = Not at all Trouble relaxin = Not at all Being so restless that it is hard to sit still: 0 = Not at all Becoming easily annoyed or irritable: 0 = Not at all Feeling afraid as if something awful might happen: 0 = Not at all Total BETSY-7 score (0-4 normal; 5-9 mild; 10-14 moderate; 15-21 severe): 0 Source: Developed by Drs. Cody Kaufman, Elenita Lacey, Endy Bass and colleagues, with an educational radha from [employer]. Physical exam (Primary Care) Vital Signs: Last Vital Signs Temp 97.8 F 02/16/25 08:57 Pulse 72 02/16/25 08:57 BP 138/80 02/16/25 08:57 Pulse Ox 98 02/16/25 08:57 Oxygen Delivery Method Room Air 02/16/25 08:57 BMI result Body Mass Index 26.3 Tobacco/Smoking Status: Tobacco use Status Tobacco use date assessed 02/16/25 02/16/25 08:59 Patient Tobacco Use Status Former Tobacco user 02/16/25 08:57 e-Cigarette/Vaping Use Former Use 02/16/25 08:59 PHQ-9: PHQ-9 Score PHQ-9: Total score 0 02/20/25 13:19 Depression Screening Interpretation: Negative Thrive Assessment: Date of Thrive Assessment Date Thrive assessed 02/16/25 02/16/25 08:59 Coding Level of Care Code Est Pt Level 4 (88700) Diagnoses Primary hypertension I10 Hypertension type: primary hypertension Hypothyroidism, unspecified type E03.9 Hypothyroidism type: unspecified Additional Codes PHQ-9 - 78460 - PHQ-9 Billing: Yes ([id number]) Assessment & Plan Assessment & Plan (1) HTN (hypertension): Code(s): I10 - Essential (primary) hypertension Category: Medical Qualifiers: Hypertension type: primary hypertension Qualified Code(s): I10 - Essential (primary) hypertension (2) Hypothyroid: Code(s): E03.9 - Hypothyroidism, unspecified Category: Medical Qualifiers: Hypothyroidism type: unspecified Qualified Code(s): E03.9 - Hypothyroidism, unspecified Plan 69 year old female presenting to [facility] Past medical, surgical, social reviewed Hypothyroid-on levothyroxine HTN -adeateuly controlled on medications
--- OUTSIDE RECORDS SUMMARY | 2025-02-16 09:15 | XMS_ITS | Clinical Summary ---
Author Organization [facility] Address [address] [place] [address] Phone Care Team Providers Care Kaiwhakahaere Name Role Phone Storm Dubon MD Primary Care Provider Allergies No known active allergies Medications lisinopriL [...] fracture 05/08/2024 HTN (hypertension) 05/08/2024 Hypothyroid 05/08/2024 Medical History Medical History Date Comments Hypertension [...] Panel) 05/08/2024 Colorectal Cancer Screening: Colonoscopy 05/08/2024 Hepatitis C Screening 05/08/2024 Osteoporosis Screening (Bone Density Screening) 05/08/2024 Social Influencers of Health Screening 05/08/2024 Depression Screening 07/06/2024 Influenza Vaccine (#1) 2025 Hypertension/CHF/CAD Annual BMP [...] this topic Medical Devices Implanted Type Area Supervisor Travel Trailer Device Identifier Shelf Expiration Date Model / Serial / Lot Plate Dvr Crsslck Nrw Mini Lft - [id number] - [id number] Implanted:Qty: 1 on 05/09/2024 by Diane Gonsales MD at [facility] Internal and External Fixation Left: Wrist [employer]ELIO [employer]ET [id number] / [id number] / [id number] Screw Lprof Nonlck 2.7x13mm - [id number] - [id number] Implanted:Qty: 1 on 05/09/2024 by Diane Gonsales MD at [facility] Internal and External Fixation Left: Wrist EVELIO [employer]ET [id number] / [id number] / [id number] Screw Lk Sq Drv 2.7x18mm - [id number] - [id number] Implanted:Qty: 2 on 05/09/2024 by Diane Gonsales MD at [facility] Internal and External Fixation Left: Wrist EVELIO [employer]ET [id number] / 0000 / [id number] Screw Lk Sq Drv 2.7x20mm - [id number] - [id number] Implanted:Qty: 2 on 05/09/2024 by Diane Gonsales MD at [facility] Internal and External Fixation Left: Wrist EVELIO BIOMET [id number] / [id number] / 0000 Screw Lk Sq Drv 2.7x16mm - [id number] - [id number] Implanted:Qty: 2 on 05/09/2024 by Diane Gonsales MD at [facility] Internal and External Fixation Left: Wrist [employer]ELIO [employer]ET [id number] / [id number] / [id number] Screw Lk Sq Drv 2.7x14mm - [id number] - [id number] Implanted:Qty: 2 on 05/09/2024 by Diane Gonsales MD at [facility] Internal and External Fixation Left: Wrist EVELIO BIOMET [id number] / [id number] / [id number] Procedures Procedure Name Priority Date/Time Associated Diagnosis Comments BASIC METABOLIC PANEL STAT 05/08/2024 10:52 AM EST from Last 3 Months or Most Recently Relevant to Health Maintenance Results * (ABNORMAL) Basic Metabolic Panel (BMP) (05/08/2024 10:52 AM EST) Sodium 140 133 - 145 mmol/L LAB CHEMISTRY METHOD 05/08/2024 11:32 AM [facility] Potassium 3.8 3.5 - 5.5 mmol/L LAB CHEMISTRY METHOD 05/08/2024 11:32 AM [facility] Chloride 106 96 - 110 mmol/L LAB CHEMISTRY METHOD 05/08/2024 11:32 AM [facility] CO2 26 21 - 32 mmol/L LAB CHEMISTRY METHOD 05/08/2024 11:32 AM [facility] Anion Gap 8 3 - 11 LAB CHEMISTRY METHOD 05/08/2024 11:32 AM [facility] Glucose 111(H) 70 - 100 mg/dL LAB CHEMISTRY METHOD 05/08/2024 11:32 AM [facility] BUN 15 5 - 25 mg/dL LAB CHEMISTRY METHOD 05/08/2024 11:32 AM [facility] Creatinine 0.82 0.50 - 1.10 mg/dL LAB CHEMISTRY METHOD 05/08/2024 11:32 AM EST [facility] eGFR 78 >=60 mL/min/1. 73m2 LAB CHEMISTRY METHOD 05/08/2024 11:32 AM EST [facility] Comment:Calculation based on the Chronic Kidney Disease Epidemiology Collaboration (CKD-EPI) equation refit without adjustment for race. BUN/Creatinine Ratio 18.3 LAB CHEMISTRY METHOD 05/08/2024 11:32 AM EST [facility] Calcium 9.8 8.5 - 10.5 mg/dL LAB CHEMISTRY METHOD 05/08/2024 11:32 AM EST [facility] Blood Venous blood specimen / Unknown Venipuncture / Unknown 05/08/2024 10:52 AM EST 05/08/2024 11:08 AM EST us Luisa LING LAB BLOOD ORDERABLES Final Resu lt [facility] [address] [place] [address], from Last 3 Months or Most Recently Relevant to Health Maintenance [place] [address] [place] [address] MEDICAID ADVANTAGE Advance Directives * Full Code - Default [...] currently active code status orders. Care Teams Kaiwhakahaere Relationship Specialty Start Date End Date Storm Dubon MD [address] [place] [address] Dr Celso [place] PCP - General Internal Medicine 05/08/24
== END 2025-02-16 09:33 | disposition home or self-care (01) ==
LOC: HO.HMCHD 08:55
PROVIDERS: PCP Internal Medicine; Visit Provider Internal Medicine
DX: I10 Essential (primary) hypertension (principal); E03.9 Hypothyroidism, unspecified

== ENCOUNTER → 2025-02-16 08:55 | Outpatient (BNVA) | payer MEDICARE, SELFPAY | PROVIDERS: PCP Internal Medicine; Visit Provider Internal Medicine | DX: I10 Essential (primary) hypertension (principal); E03.9 Hypothyroidism, unspecified; K21.9 Gastro-esophageal reflux disease without esophagitis; Z79.899 Other long term (current) drug therapy; Z13.31 Encounter for screening for depression; Z13.39 Encounter for screening examination for other mental health and behavioral disorders | CPT/HCPCS: 96127; 99212 ==

== ENCOUNTER 2025-03-21 06:02 | Outpatient (REF) | payer MEDICARE, SELFPAY ==
--- OUTSIDE RECORDS SUMMARY | 2024-01-04 07:40 | XMS_ITS ---
Author Organization [facility] Address [address] [place] [phone] Care Team Providers Care [employer] Science Teacher Name Role Phone Teagan Rushing M.D. Primary Care Provider Cody Carrion Unavailable [phone] REASON FOR VISIT screening,hx polyps Problems Problem Type SNOMED Code ICD Code Onset Dates Problem Status W/U Status Risk Notes Problem Diverticular disease of colon (412890443) Diverticulosis of large intestine without perforation or abscess without bleeding (K57.30) Active confirmed Encounters Encounter Location Date Provider Diagnosis [facility] [place] [address], [place] [phone] 01/04/2024 Cody Tran Encounter for scre ening [...] * NORBERT CONTRERAS MDOB:11/1955 (69 yo F)Acc No.[id number]:01/04/2024 COLON WITH MAC Patient: Christina NORBERT FISHER Provider: José Tran MD :1955 A ge:68 Y S ex:Female Date:01/04/2024 Address:[address] [place] [address], [facility] Pcp:Teagan Rushing M.D. Subjective: * Chief Complaints: [...] 5385 LESION REMOVAL COLONOSCOPY, Modifiers: 33 , 03563 COLONOSCOPE, SUBMUCOUS INJ, Modifiers: 59 , 33 * * The named appointment provid er may or may not be the originator of this progress note, and it is not deemed complete until electronically signed by the appointment provider. Sign off status: Pending * Provider: José Tran MD Date: 0 01/04/2024 Generated for Dilshad cochran/Joyce/Annieitting on: 0 03/21/2025 06:04 AM EDT
--- OUTSIDE RECORDS SUMMARY | 2025-02-08 04:30 | XMS_ITS ---
Author Organization [facility] Address [address] [place] [phone] Care Team Providers Care Cath Lab Tech Name Role Phone Teagan Rushing M.D. Primary Care Provider Cody Carrion [phone] REASON FOR VISIT screening Encounters Encounter Location Date Provider Diagnosis [facility] [address] [place] [phone] 02/08/2025 Cody Tran Plan Of Treatment No Information Progress Notes * NORBERT CONTRERAS MDOB:11/1955 (69 yo F)Acc No.[id number]:02/08/2025 COLON WITH MAC Patient: NORBERT MICHAELS Provider: José Tran MD :1955 A ge:69 Y S ex:Female Date:02/08/2025 Address:[address] [place], [place] [id number] Pcp:Teagan Rushing M.D. Subjective: * Chief Complaints: [...] 0 02/08/2025 Generated for Eviei sammie/Joyce/eTransmitting on: 0 03/21/2025 06:04 AM EDT
--- OUTSIDE RECORDS SUMMARY | 2025-03-21 06:05 | XMS_ITS | Patient Health Record ---
Author Organization [facility] Address [address] [place] [address] Care Team Providers Care Boat Hoist Operator Helper Name Role Phone Teagan Rushing M.D. Primary Care Provider Unavail mayuri Cody Tran Unavailable [phone] Allergies No Known Allergies Reason For Referral No Information Medications Medication SIG (Take, Route, Frequency, Duration) Notes Start Date End Date Status Levothyroxine Sodium 25 MCG 1 tablet on an empty stomach in the morning Orally Once a day Active Lisinopril 5 MG Orally Acti ve Omeprazole 20 MG TAKE 1 CAPSULE BY MO UT EVERY DAY for 90 Active Immunizations Vaccine Route Administration Date Status Comme nts Influenza Unknown 04/05/2022 Administered Problems Problem Type SNOMED Code ICD Code Onset Dates Problem Status W/U Status Risk Notes Problem 346987635 Encounter for screening for malignant neoplasm of colon (Z12.11) Active confirmed Problem History of polyp of colon (situation) (795932109) Personal history of colonic polyps (Z86.010) Active confirmed Problem Diverticular disease of colon (059396328) Diverticulosis of large intestine without perforation or abscess without bleeding (K57.30) Active confirmed Problem Screening for malignant neoplasm of rectum (544712649) Encounter for screening for malignant neoplasm of rectum (Z12.12) Active confirmed Problem 459559397 Gastroesophageal reflux disease with esophagitis (K21.0) Active confirmed Problem 10944654 Preprocedural examination (Z01.818) Active confirmed Problem 885088705 Family history o f colon cancer (Z80.0) Active confirmed Problem 84728604 Esophageal stricture (K22.2) Active confirmed Problem 30863192 Hiatal hernia (K44.9) Active confirmed Problem 20168282 Dysphagia, unspecified type (R13.10) Active confirmed Problem Diverticulosis of colon (170555524) Diverticulosis of colon (K57.30) Active confirmed Vital Signs Blood pressure diastolic 77 mm Hg 11/15/2024 Height 62 in 11/15/2024 Blood pressure systolic 111 mm Hg 11/15/2024 Weight 142 lbs 11/15/2024 BMI 25.97 kg/m2 11/15/2024 Procedures Procedure Date Ordered Date Performed Result Body Sit e COLONOSCOPY 11/15/2024 N/A Encounters Encounter Location Date Provider Diagnosis [facility] [place] [address] [place] [id number] 02/08/2025 Cody Tran [facility] [address] [place] [phone] 11/15/2024 Cody Tran Encounter for screen ing for malignant neoplasm of colon Z12.11 ; Gastroesophageal reflux disease with esophagitis K21.0 ; Hiatal hernia K44.9 ; Family history of colon cancer Z80.0 and Personal history of colonic polyps Z86.010 [facility] [address] [place] [phone] 06/23/2024 Cody Tran Assessments Encounter Date Diagnosis (ICD Code) Assessment Notes Treatment Notes Treatment Clinical Notes Section Notes 11/15/2024 Encounter for screening for malignant neoplasm of colon (ICD-10 - Z12.11) Overall, Norbert appears quite well. We did review the colonoscopies from 2022 and 2023, as well as her family history of her brother's mucinous adenocarcinoma of the appendix, and her need for a follow-up colonoscopy this year for further screening. We did review the rationale for this in regard to colorectal cancer prevention and/or early detection. Full consent has been obtained from her for this, including risks of bleeding and perforation. The procedure will be done with monitored anesthesia care. I did advise her to continue her daily PPI as that is working well for her previous history of reflux, esophagitis, and esophageal stricture. Norbert was comfortable with this plan. Thank you again for allowing me to participate in Norbert's care. I shall continue to keep you advised of her progress. 11/15/2024 Gastroesophageal reflux disease with esophagitis (ICD-10 - K21.0) Overall, Norbert appears quite well. We did review the colonoscopies from 2022 and 2023, as well as her family history of her brother's mucinous adenocarcinoma of the appendix, and her need for a follow-up colonoscopy this year for further screening. We did review the rationale for this in regard to colorectal cancer prevention and/or early detection. Full consent has been obtained from her for this, including risks of bleeding and perforation. The procedure will be done with monitored anesthesia care. I did advise her to continue her daily PPI as that is working well for her previous history of reflux, esophagitis, and esophageal stricture. Norbert was comfortable with this plan. Thank you again for allowing me to participate in Norbert's care. I shall continue to keep you advised of her progress. 11/15/2024 Hiatal hernia (ICD-10 - K44.9) Overall, Norbert appears quite well. We did review the colonoscopies from 2022 and 2023, as well as her family history of her brother's mucinous adenocarcinoma of the appendix, and her need for a follow-up colonoscopy this year for further screening. We did review the rationale for this in regard to colorectal cancer prevention and/or early detection. Full consent has been obtained from her for this, including risks of bleeding and perforation. The procedure will be done with monitored anesthesia care. I did advise her to continue her daily PPI as that is working well for her previous history of reflux, esophagitis, and esophageal stricture. Norbert was comfortable with this plan. Thank you again for allowing me to participate in Norbert's care. I shall continue to keep you advised of her progress. 11/15/2024 Family history of colon cancer (ICD-10 - Z80.0) Overall, Norbert appears quite well. We did review the colonoscopies from 2022 and 2023, as well as her family history of her brother's mucinous adenocarcinoma of the appendix, and her need for a follow-up colonoscopy this year for further screening. We did review the rationale for this in regard to colorectal cancer prevention and/or early detection. Full consent has been obtained from her for this, including risks of bleeding and perforation. The procedure will be done with monitored anesthesia care. I did advise her to continue her daily PPI as that is working well for her previous history of reflux, esophagitis, and esophageal stricture. Norbert was comfortable with this plan. Thank you again for allowing me to participate in Norbert's care. I shall continue to keep you advised of her progress. 11/15/2024 Personal history of colonic polyps (ICD-10 - Z86.010) Overall, Norbert appears quite well. We did review the colonoscopies from 2022 and 2023, as well as her family history of her brother's mucinous adenocarcinoma of the appendix, and her need for a follow-up colonoscopy this year for further screening. We did review the rationale for this in regard to colorectal cancer prevention and/or early detection. Full consent has been obtained from her for this, including risks of bleeding and perforation. The procedure will be done with monitored anesthesia care. I did advise her to continue her daily PPI as that is working well for her previous history of reflux, esophagitis, and esophageal stricture. Norbert was comfortable with this plan. Thank you again for allowing me to participate in Norbert's care. I shall continue to keep you advised of her progress. Plan Of Treatment Pending Test Test Name Order Date COLONOSCOPY 11/15/2024 Future Test Test Name Order Date UPPER GI ENDOSCOPY BALLOOON DILATION OF ESOPH 07/30/2016 COLONOSCOPY 07/30/2016 COLONOSCOPY 07/08/2022 COLONOSCOPY 10/01/2023 Insurance Providers Payer Name Payer Address Payer Phone Subscriber Number Group Number Insured Name Patient Relationship to Insured Coverage Start Date Coverage End Date [facility] [address] [place] [phone] [id number] RAZA KRAMERNORBERT Self - patient is the insured Medical (General) History Medical History History ICD Code Denies ME,DM,CVA,Lung disease,renal dise ase HTN Negative screening colonosco py in 2005 except for some diverticulosis and internal hemorrhoids [...] was removed and marked with submucosal ink. Follow-up screening colonosc opy in January 2024 revealed a sessile serrated polyp in the sigmoid colon that was removed and the area was marked with submucosal ink Surgical History Surgery Date(Month/Year) left broken arm
--- OUTSIDE RECORDS SUMMARY | 2025-03-21 06:05 | XMS_ITS | Clinical Summary ---
Author Organization [facility] Address [address] [place] [address] Phone Care Team Providers Care Orchard Sprayer Name Role Phone Storm Dubon MD Primary Care Provider [phone] Allergies No known active allergies Medications lisinopriL [...] 2004 Zoster Vaccines (1 of 2) 2004 Cholesterol Screening (Lipid Panel) 05/08/2024 Colorectal Cancer Screening: Colonoscopy 05/08/2024 Hepatitis C Screening 05/08/2024 Osteoporosis Screening (Bone Density Screening) 05/08/2024 Social Influencers of Health Screening 05/08/2024 Depression Screening 07/06/2024 COVID-19 Vaccine (3 - 2024-2 6 season) 2025 09/21/2020, 08/23/2020 Influenza Vaccine (#1) 2025 Hypertension/CHF/CAD Annual BMP [...] this topic Medical Devices Implanted Type Area Mexican Food Machine Tender Device Identifier Shelf Expiration Date Model / Serial / Lot Plate Dvr Crsslck Nrw Mini Lft - [id number] - [id number] Implanted:Qty: 1 on 05/09/2024 by Diane Gonsales MD at [facility] Internal and External Fixation Left: Wrist [employer]ET [id number] / [id number] / [id number] Screw Lprof Nonlck 2.7x13mm - [id number] - [id number] Implanted:Qty: 1 on 05/09/2024 by Diane Gonsales MD at [facility] Internal and External Fixation Left: Wrist [employer]ET [id number] / [id number] / [id number] Screw Lk Sq Drv 2.7x18mm - [id number] - [id number] Implanted:Qty: 2 on 05/09/2024 by Diane Gonsales MD at [facility] Internal and External Fixation Left: Wrist [employer]IO [employer]ET [id number] / 0000 / [id number] Screw Lk Sq Drv 2.7x20mm - [id number] - [id number] Implanted:Qty: 2 on 05/09/2024 by Diane Gonsales MD at [facility] Internal and External Fixation Left: Wrist [employer]IO [employer]ET [id number] / [id number] / 0000 Screw Lk Sq Drv 2.7x16mm - [id number] - [id number] Implanted:Qty: 2 on 05/09/2024 by Diane Gonsales MD at [facility] Internal and External Fixation Left: Wrist [employer]IO [employer]ET [id number] / [id number] / [id number] Screw Lk Sq Drv 2.7x14mm - [id number] - [id number] Implanted:Qty: 2 on 05/09/2024 by Diane Gonsales MD at [facility] Internal and External Fixation Left: Wrist [employer]ELIO BIOMET [id number] / [id number] / [id number] Procedures Procedure Name Priority Date/Time Associated Diagnosis Comments BASIC METABOLIC PANEL STAT 05/08/2024 10:52 AM EST from Last 3 Months or Most Recently Relevant to Health Maintenance Results * (ABNORMAL) Basic Metabolic Panel (BMP) (05/08/2024 10:52 AM EST) Sodium 140 133 - 145 mmol/L LAB CHEMISTRY METHOD 05/08/2024 11:32 AM [facility] Potassium 3.8 3.5 - 5.5 [...] LAB CHEMISTRY METHOD 05/08/2024 11:32 AM EST [facility] eGFR 78 >=60 mL/min/1. 73m2 LAB CHEMISTRY METHOD 05/08/2024 11:32 AM EST [facility] Comment:Calculation based on the Chronic Kidney Disease Epidemiology Collaboration (CKD-EPI) equation refit without adjustment for race. BUN/Creatinine Ratio 18.3 LAB CHEMISTRY METHOD 05/08/2024 11:32 AM EST [facility] Calcium 9.8 8.5 - 10.5 mg/dL LAB CHEMISTRY METHOD 05/08/2024 11:32 AM EST [facility] Blood Venous blood specimen / Unknown Venipuncture / Unknown 05/08/2024 10:52 AM EST 05/08/2024 11:08 AM EST us Luisa LING LAB BLOOD ORDERABLES Final Resu lt [facility] [address] [place] [address], from Last 3 Months or Most Recently Relevant to Health Maintenance [place] [address] [place] [address] MEDICAID ADVANTAGE Advance Directives * Full Code [...] currently active code status orders. Care Teams Orchard Sprayer Relationship Specialty Start Date End Date Storm Dubon MD [address] [place] [address] Dr Celso [place] PCP - General Internal Medicine 05/08/24
[2025-03-21 10:48] LABS: MANUAL DIFF FLAG NO
[2025-03-21 11:17] LABS: Hematocrit 40.3 % (37.0-47.0); Hemoglobin 13.8 g/dl (12.0-16.0); Imm Gran Abs Auto 0.01 X10*3/uL (0.00-0.03); Imm Gran Pct Auto 0.2 % (0.0-0.4); Lymphocytes Absolute Auto 1.5 X10*3/uL (1.2-4.9); Mean Corpuscular HGB Conc 34.2 g/dl (31.0-35.0); Mean Corpuscular Hemoglobin 31.9 pg (27.0-33.0); Mean Corpuscular Volume 93.3 fL (80.0-98.0); NRBC Abs Auto 0.000 X10*3/uL (0.0-0.012); NRBC Pct Auto 0.0 /100WBC (0.0-0.2); Platelet Count 199 X10*3/uL (160-400); Red Blood Count 4.32 X10*6/uL (4.20-5.50); White Blood Count 4.2 X10*3/uL (4.8-10.8)
[2025-03-21 12:22] LABS: Alanine Aminotransferase 21 U/L (0-31); Albumin Level 4.4 g/dL (3.5-5.0); Alkaline Phosphatase 62 U/L (39-117); Anion Gap 12 (12-20); Aspartate Amino Transferase 25 U/L (5-31); Blood Urea Nitrogen 10 mg/dL (9-16); Calcium 10.1 mg/dL (8.4-10.2); Carbon Dioxide 24 mmol/L (22-29); Chloride 109 mmol/L (96-108); Cholesterol 226 mg/dL (<200); Estimated Glomerular Filt Rate > 60; HDL Cholesterol 64 mg/dL (>40); Potassium 3.9 mmol/L (3.3-5.1); Sodium 141 mmol/L (135-145); Total Protein 7.0 g/dL (6.5-8.0); Triglycerides 172 mg/dL (<150)
[2025-03-21 12:53] LABS: Free T4 (Free Thyroxine) 0.99 ng/dL (0.71-1.85)
[2025-03-27 21:09] LABS: Vitamin D 25-OH, D2 <4 ng/mL; Vitamin D 25-OH, D3 49 ng/mL; Vitamin D 25-OH, Total 49 ng/mL (30-100)
== END 2025-03-21 06:03 | disposition home or self-care (01) ==
LOC: HO.HMGCLDS 06:02
PROVIDERS: PCP Internal Medicine; Visit Provider Internal Medicine
DX: I10 Essential (primary) hypertension (principal); E03.9 Hypothyroidism, unspecified; M85.80 Other specified disorders of bone density and structure, unspecified site; Z13.228 Encounter for screening for other metabolic disorders
CPT/HCPCS: 36415; 80053; 80061; 82306; 84439; 84443; 85025

== ENCOUNTER 2025-04-07 08:02 | Outpatient (REF) | payer MEDICARE, SELFPAY ==
--- OUTSIDE RECORDS SUMMARY | 2024-01-04 07:40 | XMS_ITS ---
Author Organization [facility] Address [address] [place] [phone] Care Team Providers Care Associate Agent Insurance Sales Name Role Phone Teagan Rushing M.D. Primary Care Provider Cody Carrion Unavailable [phone] REASON FOR VISIT screening,hx polyps Problems Problem Type SNOMED Code ICD Code Onset Dates Problem Status W/U Status Risk Notes Problem Diverticular disease of colon (036788767) Diverticulosis of large intestine without perforation or abscess without bleeding (K57.30) Active confirmed Encounters Encounter Location Date Provider Diagnosis [facility] [place] [address], [place] [phone] 01/04/2024 Cody Tran Encounter for scre ening [...] * NORBERT CONTRERAS MDOB:11/1955 (69 yo F)Acc No.[id number]:01/04/2024 COLON WITH MAC Patient: Christina NORBERT FISHER Provider: José Tran MD :1955 A ge:68 Y S ex:Female Date:01/04/2024 Address:[address] [place] [address], [id number] Pcp:Teagan Rushing M.D. Subjective: * Chief Complaints: [...] 5385 LESION REMOVAL COLONOSCOPY, Modifiers: 33 , [address]327 COLONOSCOPE, SUBMUCOUS INJ, Modifiers: 59 , 33 * * The named appointment provid er may or may not be the originator of this progress note, and it is not deemed complete until electronically signed by the appointment provider. Sign off status: Pending * Provider: José Tran MD Date: 0 01/04/2024 Generated for Dilshad cochran/Joyce/Toñosmitting on: 1 08:05 AM EDT
--- OUTSIDE RECORDS SUMMARY | 2025-02-08 04:30 | XMS_ITS ---
Author Organization [facility] Address [address] [place] [address] Care Team Providers Care Health Insurance Specialist Name Role Phone Teagan Rushing M.D. Primary Care Provider Cody Carrion [phone] REASON FOR VISIT screening Encounters Encounter Location Date Provider Diagnosis [facility] Out[facility] [address] [place] [phone] 02/08/2025 Cody Tran Plan Of Treatment No Information Progress Notes * NORBERT CONTRERAS MDOB:11/1955 (69 yo F)Acc No.[id number]:02/08/2025 COLON WITH MAC Patient: NORBERT MICHAELS Provider: José Tran MD :1955 A ge:69 Y S ex:Female Date:02/08/2025 Address:[address] [place], [place] [phone] Pcp:Teagan Rushing M.D. Subjective: * Chief Complaints: * 1 . Screening. * Medical History: Objective: * Vitals: Assessment: Plan: * Treatment: * * The named appointment provid er may or may not be the originator of this progress note, and it is not deemed complete until electronically signed by the appointment provider. Sign off status: Pending * Provider: José Tran MD Date: 0 02/08/2025 Generated for Eviei sammie/Joyce/eTransmitting on: 1 08:05 AM EDT
--- NOTE | ~2025-04-07 | MM_ITS ---
EXAMINATION: MM SCREENING DIGITAL BREAST TOMOSYNTHESIS, BILATERAL CLINICAL INFORMATION: Screening. Asymptomatic. COMPARISON: Mammography: Comparison is made with available priors TECHNIQUE: Digital breast mammography with tomosynthesis is performed in both the craniocaudal and mediolateral oblique views along with computer-aided detection (CAD). FINDINGS: There are scattered areas of fibroglandular density. There are no significant masses, abnormal calcifications, or other abnormalities. MM/MM tomosynthesis screening BI IMPRESSION: No mammographic evidence of malignancy. ASSESSMENT: BI-RADS Category 1: Negative RECOMMENDATION: Routine annual mammography screening. 1 year F/U This examination should not preclude the clinical evaluation of a suspicious palpable abnormality. This patient's information was entered into a reminder system with a target due date for their next mammogram. Electronically signed by: Kaylee Thomas DO 04/14/2025 03:48 PM EDT
--- NOTE | ~2025-04-07 | MM_ITS ---
EXAMINATION: DXA BONE DENSITY AXIAL HISTORY: M85.80 - Other specified disorders of bone density and structure, unspecified... TECHNIQUE: [employer] Dual energy absorptiometry (DEXA) of the lumbar spine, total left hip, and femoral neck was performed. COMPARISON: Comparison is made with the prior examination dated 09/28/2022. FINDINGS: The bone mineral density of the lumbar spine is 1.092 g/cm2, corresponding to a T-score of -0.7, and a Z-score of 1.0. This is indicative of normal bone mineral density. This represents a BMD change of 6.6% compared to the prior exam. This is statistically significant. The bone mineral density of the left total hip is 0.755 g/cm2, corresponding to a T-score of -2.0, and a Z-score of -0.5. This is indicative of osteopenia. This represents a BMD change of -0.4% compared to the prior exam. This is not statistically significant. The bone mineral density of the left femoral neck is 0.711 g/cm2, corresponding to a T-score of -2.4, and a Z-score of -0.6. This is indicative of osteopenia. This represents a BMD change of 4..3% compared to the prior exam. FRACTURE RISK: The FRAX index suggests a ten year probability of major osteoporotic fracture of 22.7%, and of hip fracture 7.9%. MM/XR DEXA axial skeleton IMPRESSION: Based on bone mineral density, and according to World Health Organization (WHO) criteria, the diagnosis is consistent with osteopenia. Statistically, 68% of repeat scans fall within 1 SD (+/- 0.010 g/cm2 for AP spine L1-L4) and 1 SD (+/- 0.012 g/cm2 for femur total) FRAX is a trademark of the [employer] [place] [facility] [employer], a World Health Organization (WHO) Collaborating Center. Electronically signed by: Cody Jesus MD 04/07/2025 08:54 AM EDT
--- OUTSIDE RECORDS SUMMARY | 2025-04-07 08:06 | XMS_ITS | Patient Health Record ---
Author Organization [facility] Address [address] [place] [address] Care Team Providers Care Solar Thermal Technician Name Role Phone Teagan Rushing M.D. Primary Care Provider Unavail able Cody Tran Unavailable [phone] Allergies No Known Allergies Reason For Referral [...] Problem Status W/U Status Risk Notes Problem 362408641 Encounter for screening for malignant neoplasm of colon (Z12.11) Active confirmed Problem History of polyp of colon (situation) (683687207) Personal history of colonic polyps (Z86.010) Active confirmed Problem Diverticular disease of colon (531208502) Diverticulosis of large intestine without perforation or abscess without bleeding (K57.30) Active confirmed Problem Screening for malignant neoplasm of rectum (065298366) Encounter for screening for malignant neoplasm of rectum (Z12.12) Active confirmed Problem 471859701 Gastroesophageal reflux disease with esophagitis (K21.0) Active confirmed Problem 97474927 Preprocedural examination (Z01.818) Active confirmed Problem 629477494 Family history o f colon cancer (Z80.0) Active confirmed Problem 32088859 Esophageal stricture (K22.2) Active confirmed Problem 31221284 Hiatal hernia (K44.9) Active confirmed Problem 36340668 Dysphagia, unspecified type (R13.10) Active confirmed Problem Diverticulosis of colon (128744004) Diverticulosis of colon (K57.30) Active confirmed Vital Signs Blood pressure diastolic 77 mm Hg 11/15/2024 Height 62 in 11/15/2024 Blood pressure systolic 111 mm Hg 11/15/2024 Weight 142 lbs 11/15/2024 BMI 25.97 kg/m2 11/15/2024 Procedures Procedure Date Ordered Date Performed Result Body Sit e COLONOSCOPY 11/15/2024 N/A Encounters Encounter Location Date Provider Diagnosis [facility] [address] [place] [id number] 02/08/2025 Cody Tran [facility] [address] [place] [phone] 11/15/2024 Cody Tran Encounter for screen ing for malignant neoplasm of colon Z12.11 ; Gastroesophageal reflux disease with esophagitis K21.0 ; Hiatal hernia K44.9 ; Family history of colon cancer Z80.0 and Personal history of colonic polyps Z86.010 [facility] [address] [place] [phone] 06/23/2024 Cody Tran [facility] [address] [place] [phone] 11/15/2024 Cody Tran Assessments Encounter Date Diagnosis (ICD [...] Insured Coverage Start Date Coverage End Date [facility] [address] [place] [address] [id number] NORBERT CONTRERAS Self - patient is the insured Medical (General) History Medical History History ICD Code Denies PA,DM,CVA,Lung disease,renal dise ase HTN Negative screening colonosco [...]
--- OUTSIDE RECORDS SUMMARY | 2025-04-07 08:06 | XMS_ITS | Clinical Summary ---
Author Organization [facility] Address [address] [place] [address] Phone Care Team Providers Care Job Lithographer Name Role Phone Storm Dubon MD Primary Care Provider [phone] Allergies No known active allergies Medications lisinopriL [...] Safety Answer Date Record ed Physical Abuse Unrecognized value 05/08/2024 Verbal Abuse Unrecognized value 05/08/2024 Comments Unknown Sex and Gender Information [...] Last Done Comments Breast Cancer Screening 1954 Colorectal Cancer Screening: Colonoscopy 1954 DTaP,Tdap,and Td Vaccines (1 - Tdap) 1973 Pneumococcal Vaccine: 50+ Years (1 of 1 - PCV) 2004 Zoster Vaccines (1 of 2) 2004 Cholesterol Screening (Lipid Panel) 05/08/2024 Hepatitis C Screening 05/08/2024 Osteoporosis Screening [...] this topic Medical Devices Implanted Type Area Printing Table Hand Device Identifier Shelf Expiration Date Model / Serial / Lot Plate Dvr Crsslck Nrw Mini Lft - [id number] - [id number] Implanted:Qty: 1 on 05/09/2024 by Diane Gonsales MD at [facility] Internal and External Fixation Left: Wrist [employer]ET [id number] / [id number] / [id number] Screw Lprof Nonlck 2.7x13mm - [id number] - [id number] Implanted:Qty: 1 on 05/09/2024 by Diane Gonsales MD at [facility] Internal and External Fixation Left: Wrist EV[employer]IO BIOMET [id number] / [id number] / [id number] Screw Lk Sq Drv 2.7x18mm - S0000 - [id number] Implanted:Qty: 2 on 05/09/2024 by Diane Gonsales MD at [facility] Internal and External Fixation Left: Wrist EVELIO BIOMET [id number] / 0000 / [id number] Screw Lk Sq Drv 2.7x20mm - [id number] - [id number] Implanted:Qty: 2 on 05/09/2024 by Diane Gonsales MD at [facility] Internal and External Fixation Left: Wrist EVELIO BIOMET [id number] / [id number] / 0000 Screw Lk Sq Drv 2.7x16mm - [id number] - [id number] Implanted:Qty: 2 on 05/09/2024 by Diaen Gonsales MD at [facility] Internal and External Fixation Left: Wrist [employer]IO BIOMET [id number] / [id number] / [id number] Screw Lk Sq Drv 2.7x14mm - [id number] - [id number] Implanted:Qty: 2 on 05/09/2024 by Diane Gonsales MD at [facility] Internal and External Fixation Left: Wrist EVELIO BIOMET [id number] / [id number] / [id number] Procedures Procedure Name Priority Date/Time Associated Diagnosis Comments BASIC METABOLIC PANEL STAT 05/08/2024 10:52 AM EST from Last 3 Months or Most Recently Relevant to Health Maintenance Results * (ABNORMAL) Basic Metabolic Panel (BMP) (05/08/2024 10:52 AM EST) Sodium 140 133 - 145 mmol/L LAB CHEMISTRY METHOD 05/08/2024 11:32 AM [facility] Potassium 3.8 3.5 - 5.5 mmol/L LAB CHEMISTRY METHOD 05/08/2024 11:32 AM [facility] Chloride 106 96 - 110 mmol/L LAB CHEMISTRY METHOD 05/08/2024 11:32 AM [facility] CO2 26 21 - 32 mmol/L LAB CHEMISTRY METHOD 05/08/2024 11:32 AM [facility] Anion Gap 8 3 - 11 LAB CHEMISTRY METHOD 05/08/2024 11:32 AM [facility] Glucose 111(H) 70 - 100 mg/dL LAB CHEMISTRY METHOD 05/08/2024 11:32 AM [facility] BUN 15 5 - 25 mg/dL LAB CHEMISTRY METHOD 05/08/2024 11:32 AM [facility] Creatinine 0.82 0.50 - 1.10 mg/dL LAB CHEMISTRY METHOD 05/08/2024 11:32 AM EST [facility] eGFR 78 >=60 mL/min/1. 73m2 LAB CHEMISTRY METHOD 05/08/2024 11:32 AM EST [facility] Comment:Calculation based on the Chronic Kidney Disease Epidemiology Collaboration (CKD-EPI) equation refit without adjustment for race. BUN/Creatinine Ratio 18.3 LAB CHEMISTRY METHOD 05/08/2024 11:32 AM EST [facility] Calcium 9.8 8.5 - 10.5 mg/dL LAB CHEMISTRY METHOD 05/08/2024 11:32 AM EST [facility] Blood Venous blood specimen / Unknown Venipuncture / Unknown 05/08/2024 10:52 AM EST 05/08/2024 11:08 AM EST us Luisa LING LAB BLOOD ORDERABLES Final Resu lt [facility] [address] [place] [address], from Last 3 Months or Most Recently Relevant to Health Maintenance Insurance [place] [address] MEDICAID ADVANTAGE Advance Directives * Full Code [...] currently active code status orders. Care Teams Job Lithographer Relationship Specialty Start Date End Date Storm Dubon MD [address] [place] [address] Dr Celso [place] PCP - General Internal Medicine 05/08/24
== END 2025-04-07 08:03 | disposition home or self-care (01) ==
LOC: HO.MAMMO 08:02
PROVIDERS: PCP Internal Medicine; Visit Provider Internal Medicine
DX: Z12.31 Encounter for screening mammogram for malignant neoplasm of breast (principal); Z13.820 Encounter for screening for osteoporosis; M85.89 Other specified disorders of bone density and structure, multiple sites
CPT/HCPCS: 77063; 77067; 77080

== ENCOUNTER → 2025-04-07 08:45 | Outpatient (BNV) | payer MEDICARE, SELFPAY | PROVIDERS: PCP Internal Medicine; Visit Provider Radiology Diagnostic Radiology | DX: E28.39 Other primary ovarian failure (principal) | CPT/HCPCS: 77080 ==